=== PATIENT | female | born 1965 | race African-American/Black ===

== ENCOUNTER 2016-09-04 05:53 | Emergency (ER) | payer OTHER ==
[~2016-09-04] VITALS: Ht 167.6 cm; Wt 99.8 kg
[~2016-09-04 05:53] MED LIST: ACYCLOVIR400 MG ORAL; ALBUTEROL SULF8.5 GM INH; AMLODIPINE BESY10 MG; BENTYL10 MG ORAL; GYNE-LOTRIMIN45 GM VG; HYDROCHLOROTHIA25 MG; HYDROCHLOROTHIA25 MG ORAL; IBUPROFEN600 M1; NEURONTIN400 MG ORAL; NORCO 5-325 TA1 EACH ORAL; NORVASC5 MG ORAL; PROTONIX40 MG ORAL; QVAR7.3 G2; TENORMIN25 MG ORAL; VENTOLIN HFA18 GM; ZOFRAN4 M1 ORAL; ZOSTRIX HP56.6 G1 TP
[2016-09-04] MEDS ORDERED: PredniSONE 20mg tab ORAL ONE (06:30)
[2016-09-04] MEDS: Ipratropium 0.02% Inh Soln 2.5ml UD HHN SCH ×3 (06:31→07:00)
[2016-09-04] MEDS: Albuterol ud Inhalation HHN SCH ×3 (06:31→07:00)
[2016-09-04] MEDS ORDERED: GUAIFENESIN-CO118 M1 ORAL (06:58)
[2016-09-04] MEDS ORDERED: ALBUTEROL SULF8.5 GM INH (06:58)
[2016-09-04] MEDS ORDERED: PREDNISONE20 MG ORAL (06:58)
[2016-09-04 07:06] VITALS: BP 100/83
[2016-09-04 07:07] VITALS: BP 117/77
--- NOTE | 2016-09-04 21:54 | Emergency Room Report ---
History of Present Illness General Chief Complaint: Asthma Source: Patient Present Illness HPI 50-year-old female presents ED complaining of cough and wheezing x1 day. States symptoms started yesterday. Cough is dry. Nonproductive. No shortness of breath. Notes history of asthma. Denies any fevers or chills. Denies chest pain. Denies smoking. No other aggravating or relieving factors. Denies any other associated symptoms Allergies: Coded Allergies: NO KNOWN DRUG ALLERGIES (Unverified Allergy, Unknown, 11/07/14) Patient History Past Medical History: HTN, asthma Past Surgical History: none Pertinent Family History: none Social History: Denies: alcohol use, drug use, smoking Last Menstrual Period: not naymore Now: No : 5 Immunizations: UTD Reviewed Nursing Documentation: PMH: Agreed, PSxH: Agreed Nursing Documentation-PMH Hx Hypertension: Yes Hx Asthma: Yes Review of Systems All Other Systems: negative except mentioned in HPI Physical Exam Vital Signs Date Time Temp Pulse Resp B/P Pulse Ox O2 Delivery O2 Flow Rate FiO2 09/04/16 06:00 98.2 80 22 117/77 97 09/04/16 06:10 Room Air 09/04/16 06:31 21 Sp02 EP Interpretation: reviewed, normal General Appearance: no apparent distress, alert, GCS 15, non-toxic Head: normocephalic Eyes: bilateral eye PERRL, bilateral eye normal inspection ENT: normal ENT inspection Neck: normal inspection Respiratory: wheezing Cardiovascular #1: regular rate, rhythm, no edema Gastrointestinal: normal bowel sounds, non tender, soft, non-distended, no guarding, no rebound Rectal: deferred Genitourinary: no CVA tenderness Musculoskeletal: normal inspection Neurologic: alert, oriented x3, responsive, motor strength/tone normal, sensory intact, speech normal Psychiatric: normal inspection Skin: normal inspection Lymphatic: normal inspection Medical Decision Making Diagnostic Impression: Primary Impression: Asthma exacerbation ER Course Hospital Course 50-year-old female presents to ED complaining of cough, wheezing Differential diagnoses include: URI, bronchitis, asthma/COPD, pneumonia Clinical course Patient placed on stretcher. After initial history, physical exam reveals an elderly male in no acute distress. Bilateral TM unremarkable. No pharyngeal erythema. No tonsillar exudates. No lymphadenopathy. Mild wheezing noted on exam, no signs of respiratory distress or retractions. Patient given Prednisone and albuterol/atrovent treatment in ED with symptoms improved. Reassurance given Diagnosis - asthma exacerbation Stable and discharged home with prescriptions for cough syrup, albuterol, prednisone. Instructed to followup with PMD. Return to ED if symptoms recur or worsen Last Vital Signs Date Time Temp Pulse Resp B/P Pulse Ox O2 Delivery O2 Flow Rate FiO2 09/04/16 07:07 98.2 73 18 117/77 100 Room Air 21 Status: improved Disposition: HOME, SELF-CARE Condition: Improved Scripts Albuterol Sulfate* (ALBUTEROL SULFATE MDI*) 8.5 Gm Hfa.aer.ad 2 PUFF INH Q6H, #1 EA 0 Refills Prov: TONIA MARIEE M.D. 09/04/16 Guaifenesin/Codeine Phos* (ROBITUSSIN AC*) 118 Ml Liquid 5 ML ORAL Q6H Y for For Cough, #118 ML 0 Refills Prov: TONIA MARIEE M.D. 09/04/16 Prednisone* (PREDNISONE*) 20 Mg Tablet 20 MG ORAL BID for 3 Days, #6 TAB 0 Refills Prov: TONIA MARIEE M.D. 09/04/16 Referrals: [facility],REFERRING (PCP) Patient Instructions: Asthma, Adult Additional Instructions: - Take prednisone twice daily for 3 days - Cough syrup as needed for cough - Use albuterol for chest tightness, shortness of breath, and wheezing - Followup with your primary care doctor in 2-3 days GABY SANDOVAL M.D. Sep 04, 2016 21:54
== END 2016-09-04 07:10 | disposition home or self-care (01) ==
LOC: EMR 06:26
DX: J45.901 Unspecified asthma with (acute) exacerbation (principal); I10 Essential (primary) hypertension
CPT/HCPCS: 94640; 94664; 99284

== ENCOUNTER 2016-10-14 07:30 | Emergency (ER) | payer OTHER ==
[~2016-10-14] VITALS: Ht 157.5 cm; Wt 104.3 kg
[~2016-10-14 07:30] MED LIST changes: +GUAIFENESIN-CO118 M1 ORAL; +PREDNISONE20 MG ORAL
[2016-10-14 07:45] VITALS: BP 111/74
[2016-10-14 08:45] VITALS: BP 115/76
--- NOTE | 2016-10-14 09:01 | Emergency Room Report ---
History of Present Illness General Chief Complaint: Pain Source: Patient Present Illness HPI Patient presents with complaints of pain to the left upper chest area, also below the breast pain radiating from the left side across the back area Patient was at nighttime she wakes up with the discomfort This is been ongoing for the past several days Denies any change with exertion During work patient also does not feel much discomfort However when laying on that side feels more uncomfortable Patient reports a tearing sensation Denies any abdominal pain Patient reports that she has asthma her breathing treatment also helped a bit , Allergies: Coded Allergies: NO KNOWN DRUG ALLERGIES (Unverified Allergy, Unknown, 11/07/14) Patient History Past Medical History: see triage record Pertinent Family History: none Last Menstrual Period: Menopause Now: No Reviewed Nursing Documentation: PMH: Agreed, PSxH: Agreed Nursing Documentation-PMH Past Medical History: No History, Except For Hx Hypertension: Yes Hx Asthma: Yes Review of Systems All Other Systems: negative except mentioned in HPI Physical Exam Vital Signs Date Time Temp Pulse Resp B/P Pulse Ox O2 Delivery O2 Flow Rate FiO2 10/14/16 07:41 97.5 75 16 111/74 96 Room Air Sp02 EP Interpretation: reviewed, normal General Appearance: well appearing, no apparent distress Head: normocephalic, atraumatic Eyes: bilateral eye EOMI, bilateral eye PERRL ENT: hearing grossly normal, normal pharynx, TMs + canals normal, uvula midline Neck: full range of motion, supple, no meningismus, no bony tend Respiratory: lungs clear, normal breath sounds, no rhonchi, no respiratory distress, no retraction, no accessory muscle use Cardiovascular #1: normal peripheral pulses, regular rate, rhythm, no edema, no gallop, no JVD, no murmur Gastrointestinal: normal bowel sounds, non tender, soft, no mass, no organomegaly, non-distended, no guarding, no hernia, no pulsatile mass, no rebound Genitourinary: no CVA tenderness Musculoskeletal: normal inspection Neurologic: oriented x3, responsive, 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 tested, motor strength/ tone normal, sensory intact Psychiatric: mood/affect normal Skin: normal color, no rash, warm/dry, palpation normal Lymphatic: normal inspection, no adenopathy Medical Decision Making Diagnostic Impression: Primary Impression: chest pain ER Course Patient has had shingles in the past from medical review There is no signs of any dermatomal lesions at this time I did discuss that early presentation history not show any symptoms initially however she is to keep a close eye on this EKG was otherwise appropriate and the patient is stable for close outpatient followup Rhythm Strip Diag. Results EP Interpretation: yes Rate: 78 Rhythm: NSR, no PVC's, no ectopy Last Vital Signs Date Time Temp Pulse Resp B/P Pulse Ox O2 Delivery O2 Flow Rate FiO2 10/14/16 08:45 98.0 76 17 115/76 98 Room Air Status: unchanged Disposition: HOME, SELF-CARE Condition: Stable Referrals: NOT CHOSEN [facility],REFERRING Patient Instructions: Nonspecific Chest Pain, [id number] Additional Instructions: Patient is provided with the discharge instructions notified to follow up with primary doctor in the next 2-3 days otherwise return to the er with any worsening symptoms. Please note that this report is being documented using [employer] technology. This can lead to erroneous entry secondary to incorrect interpretation by the dictating instrument. DWIGHT VUONG D.O. Oct 14, 2016 09:01
--- NOTE | 2016-10-18 00:15 | Cardiology Report ---
APPROVED REPORT EKG Measurement Heart [id number] Normal sinus rhythm Normal ECG
== END 2016-10-14 08:45 | disposition home or self-care (01) ==
LOC: EMR 07:56
DX: R07.9 Chest pain, unspecified (principal); I10 Essential (primary) hypertension; J45.909 Unspecified asthma, uncomplicated; Z78.0 Asymptomatic menopausal state
CPT/HCPCS: 93005; 99283

== ENCOUNTER 2016-11-13 13:25 | Emergency (ER) | payer OTHER ==
[~2016-11-13] VITALS: Ht 170.2 cm; Wt 95.3 kg
[2016-11-13] MEDS ORDERED: Morphine Sulfate 4mg/ml Inj IVP ONE (13:45)
[2016-11-13 13:57] VITALS: BP 103/68
[2016-11-13 14:05] LABS: BASOPHILS % (AUTO) 0.7 % (0.0-2.0); EOSINOPHILS % (AUTO) 4.3 % (0.0-3.0); LYMPHOCYTES % (AUTO) 26.9 % (20.0-45.0); MEAN CORPUSCULAR HEMOGLOBIN 27.6 PG (27.0-31.0); MEAN CORPUSCULAR HGB CONC 32.1 G/DL (32.0-36.0); MEAN CORPUSCULAR VOLUME 86 FL (80-99); MEAN PLATELET VOLUME 8.2 FL (6.5-10.1); MONOCYTES % (AUTO) 5.3 % (1.0-10.0); NEUTROPHILS % (AUTO) 62.7 % (45.0-75.0); PLATELET COUNT 247 K/UL (150-450); RED BLOOD COUNT 4.98 M/UL (4.20-5.40); RED CELL DISTRIBUTION WIDTH 13.1 % (11.6-14.8); WHITE BLOOD COUNT 9.2 K/UL (4.8-10.8)
[2016-11-13 14:18] LABS: APPEARANCE,URINE CLEAR; KETONES,URINE NEGATIVE (NEGATIVE); LEUKOCYTE ESTERASE ,URINE NEGATIVE (NEGATIVE); NITRITE,URINE NEGATIVE (NEGATIVE); PH,URINE 6 (4.5-8.0); PROTEIN,URINE NEGATIVE (NEGATIVE); UROBILINOGEN,URINE NORMAL MG/DL (0.0-1.0)
[2016-11-13 14:23] LABS: ALANINE AMINOTRANSFERASE 10 U/L (3-33); ALBUMIN/GLOBULIN RATIO 1.3 (1.0-2.7); AMYLASE 117 U/L (10-110); ANION GAP 15 (5-15); ASPARTATE AMINO TRANSFERASE 10 U/L (5-40); CALCIUM 9.6 mg/dL (8.6-10.2); CARBON DIOXIDE 25 mEQ/L (20-30); CHLORIDE 98 mEQ/L (98-107); CREATININE 0.9 mg/dL (0.5-0.9); GLOMERULAR FILTRATION RATE > 60 mL/min (>60); HEMOLYSIS 3; LIPASE 152 U/L (< 60); POTASSIUM 3.4 mEQ/L (3.4-4.9); SODIUM 138 mEQ/L (135-145)
[2016-11-13] MEDS ORDERED: NORCO 5-325 TA1 EAC1 ORAL (16:16)
[2016-11-13] MEDS ORDERED: ZOFRAN4 M3 ORAL (16:16)
[2016-11-13 16:28] VITALS: BP 106/69
[2016-11-13 16:29] VITALS: BP 106/69
--- NOTE | 2016-11-13 21:11 | Emergency Room Report ---
History of Present Illness General Chief Complaint: Abdominal Pain Source: Medical Record Present Illness HPI The patient is a 50-year-old female with a history of pancreatitis presenting for mid upper abdominal pain which began 2 days prior. Pain is described as a 10 out of 10 dull ache and radiates to the back. Patient also admits to nausea and diarrhea which began prior to the pain. She denies vomiting. No known provoking or relieving factors. She states this does feel similar to previous pancreatitis. The patient states pancreatitis was onset by inhaling chemicals years prior. She denies any other symptoms including fever, chills, dysuria, hematuria, shortness of breath, chest pain, numbness or tingling Allergies: Coded Allergies: NO KNOWN DRUG ALLERGIES (Unverified Allergy, Unknown, 11/07/14) Nursing Documentation-[facility] Past Medical History: No History, Except For Hx Hypertension: Yes Hx Asthma: Yes Physical Exam Vital Signs Date Time Temp Pulse Resp B/P Pulse Ox O2 Delivery O2 Flow Rate FiO2 11/13/16 13:23 98.1 76 18 103/68 97 Room Air Medical Decision Making PA Attestation Dr. Little is my supervising physician. Patient management was discussed with my supervising physician Diagnostic Impression: Primary Impression: Pancreatitis, gallstone ER Course Differential diagnoses considered include but not limited to gastritis, pancreatitis, appendicitis, AAA, ACS, , UTI Labs Test 11/13/16 13:40 11/13/16 13:45 White Blood Count 9.2 K/UL (4.8-10.8) Red Blood Count 4.98 M/UL (4.20-5.40) Hemoglobin 13.8 G/DL (12.0-16.0) Hematocrit 42.9 % (37.0-47.0) Mean Corpuscular Volume 86 FL (80-99) Mean Corpuscular Hemoglobin 27.6 PG (27.0-31.0) Mean Corpuscular Hemoglobin Concent 32.1 G/DL (32.0-36.0) Red Cell Distribution Width 13.1 % (11.6-14.8) Platelet Count 247 K/UL (150-450) Mean Platelet Volume 8.2 FL (6.5-10.1) Neutrophils (%) (Auto) 62.7 % (45.0-75.0) Lymphocytes (%) (Auto) 26.9 % (20.0-45.0) Monocytes (%) (Auto) 5.3 % (1.0-10.0) Eosinophils (%) (Auto) 4.3 % (0.0-3.0) Basophils (%) (Auto) 0.7 % (0.0-2.0) Sodium Level 138 mEQ/L (135-145) Potassium Level 3.4 mEQ/L (3.4-4.9) Chloride Level 98 mEQ/L (98-107) Carbon Dioxide Level 25 mEQ/L (20-30) Anion Gap 15 (5-15) Blood Urea Nitrogen 15 mg/dL (7-23) Creatinine 0.9 mg/dL (0.5-0.9) Estimat Glomerular Filtration Rate > 60 mL/min (>60) Glucose Level 63 mg/dL (74-106) Calcium Level 9.6 mg/dL (8.6-10.2) Total Bilirubin 0.3 mg/dL (0.0-1.2) Aspartate Amino Transf (AST/SGOT) 10 U/L (5-40) Alanine Aminotransferase (ALT/SGPT) 10 U/L (3-33) Alkaline Phosphatase 72 U/L (35-104) Total Protein 7.0 g/dL (6.6-8.7) Albumin 4.0 g/dL (3.5-5.2) Globulin 3.0 g/dL Albumin/Globulin Ratio 1.3 (1.0-2.7) Amylase Level 117 U/L (10-110) Lipase 152 U/L (< 60) Urine Color Yellow Urine Appearance Clear Urine pH 6 (4.5-8.0) Urine Specific [place] 1.020 (1.005-1.035) Urine Protein Negative (NEGATIVE) Urine Glucose (UA) Negative (NEGATIVE) Urine Ketones Negative (NEGATIVE) Urine Occult Blood Negative (NEGATIVE) Urine Nitrite Negative (NEGATIVE) Urine Bilirubin Negative (NEGATIVE) Urine Urobilinogen Normal MG/DL (0.0-1.0) Urine Leukocyte Esterase Negative (NEGATIVE) Last Vital Signs Date Time Temp Pulse Resp B/P Pulse Ox O2 Delivery O2 Flow Rate FiO2 11/13/16 16:29 98.1 72 18 106/69 98 Room Air Status: improved Disposition: HOME, SELF-CARE Condition: Improved Scripts Hydrocodone Bit/Acetaminophen 5-325* (NORCO 5-325 TABLET*) 1 Each Tablet 1 TAB ORAL Q6HR Y for For Pain, #8 TAB Prov: ERLIN CRAIG 11/13/16 Ondansetron* (ZOFRAN*) 4 Mg Tablet 4 MG ORAL Q6H Y for Nausea & Vomiting, #15 TAB Prov: ERLIN CRAIG. 11/13/16 Patient Instructions: Cholelithiasis, Diarrhea, Adult, Acute Pancreatitis Additional Instructions: I discussed my findings with the patient. All questions and concerns have been answered. Treatment and medication compliance have been addressed. I advised the patient that they need to follow up with PMD in 3-5 days. Return to ED as soon as possible if symptoms worsen, new symptoms arise, or if needed for any reason. Patient verbalized understanding of discharge instructions. ERLIN CRAIG Nov 13, 2016 21:11
--- NOTE | 2016-11-14 08:40 | Diagnostic Imaging Report ---
Clinical Indication: Abdominal pain Technique: No oral contrast utilized, per emergency room physician request IV administration nonionic contrast. Venous phase spiral acquisition obtained through the abdomen and pelvis. Multiplanar reconstructions were generated. Total dose length product 1014 mGycm. CTDIvol(s) 18 mGy. Dose reduction achieved using automated exposure control Comparison: None Findings: The appendix is normal there is colonic diverticulosis. There is some wall thickening of the proximal sigmoid colon, but no significant fat stranding. No free or loculated intraperitoneal air or fluid. No small bowel distention. The distal esophagus, stomach, duodenum are unremarkable. There is slight prominence and heterogeneous attenuation of the pancreatic head and slight stranding of the peripancreatic fat adjacent to the pancreatic head. No associated extra luminal fluid collections. The remainder of the pancreas is unremarkable The gallbladder contains gallstones. Gallbladder wall is not thickened and there is no biliary ductal dilatation. The liver is unremarkable. The spleen, adrenals, kidneys are unremarkable. There is a possibly septated cystic mass in the right adnexal region which measures 6.6 cm in diameter. There is a 2.4 cm cyst in the left ovary, presumably a dominant follicle. Uterus is unremarkable. No pelvic adenopathy. The bladder is unremarkable. The included lung bases are clear. The bones are unremarkable except for mild degenerative spondylosis changes at the lumbosacral junction. There are questionable subtle bilateral L5 pars defects Impression: Mild peripancreatic fat stranding and subtle slight edema and mixed attenuation of the pancreatic head, could indicate early acute pancreatitis. Correlate with laboratory results. Cholelithiasis. No findings to suggest acute cholecystitis Diverticulosis. Suggestion of slight wall thickening of the proximal sigmoid colon, probably due to circular muscle hypertrophy; very early acute diverticulitis not completely excludable, correlation with clinical findings is recommended Right adnexal 6.6 cm cystic structure, possibly septated or tubular, could indicate functional cyst, cystic mass or hydrosalpinx. Correlate with ultrasound findings Questionable bilateral L5 spondylolysis. Associated L5-S1 disc degeneration This agrees with the preliminary interpretation provided overnight by Dr. Kaur The CT scanner at [facility] is accredited by the [employer] and the scans are performed using protocols designed to limit radiation exposure to as low as reasonably achievable to attain images of sufficient resolution adequate for diagnostic evaluation.
== END 2016-11-13 16:31 | disposition home or self-care (01) ==
LOC: EDBD 13:25 → EMR 13:45
DX: K85.10 Biliary acute pancreatitis without necrosis or infection (principal); I10 Essential (primary) hypertension; J45.909 Unspecified asthma, uncomplicated; K57.30 Diverticulosis of large intestine without perforation or abscess without bleeding
CPT/HCPCS: 36415; 74177; 80053; 81003; 82150; 83690; 85025; 96374; 96375; 99284; J2270; J2405; Q9967

== ENCOUNTER 2017-07-28 20:42 | Emergency (ER) | payer MEDICAID, OTHER ==
[~2017-07-28] VITALS: Ht 162.6 cm; Wt 95.3 kg
[~2017-07-28 20:42] MED LIST changes: +NORCO 5-325 TA1 EAC1 ORAL; +ZOFRAN4 M3 ORAL
[2017-07-28] MEDS ORDERED: HYDROmorphone 1mg/ml Carpuject IVP ONE (21:15)
--- NOTE | 2017-07-28 21:44 | Emergency Room Report ---
History of Present Illness General Chief Complaint: Abdominal Pain Source: Patient Present Illness HPI Is a 51-year-old female with history of gallstone and pancreatitis in the past. She saw surgeon and no surgery was recommended. She was doing well for the last 3 years. Now presents with chief complaint abdominal pain in the upper quadrant area. Onset for last 3 days. Pain is now severe 10 out of 10. Worse with eating. No radiation. Nausea but no vomiting. No diarrhea. No fever or chills. No alcoholic or drug use Allergies: Coded Allergies: NO KNOWN DRUG ALLERGIES (Unverified Allergy, Unknown, 11/07/14) Patient History Past Medical History: see triage record, old chart reviewed Past Surgical History: none Pertinent Family History: none Social History: Denies: smoking Now: No Immunizations: other Reviewed Nursing Documentation: PMH: Agreed, PSxH: Agreed Nursing Documentation-PMH Past Medical History: No History, Except For Hx Hypertension: Yes Hx Asthma: Yes Hx Gastrointestinal Problems: No - Pancreatitis Review of Systems Eye: Denies: eye pain, blurred vision ENT: Denies: ear pain, nose congestion, throat swelling Respiratory: Denies: cough, shortness of breath Cardiovascular: Denies: chest pain, palpitations Gastrointestinal: Reports: abdominal pain, nausea, Denies: diarrhea, vomiting Musculoskeletal: Denies: back pain, joint pain Skin: Denies: rash Neurological: Denies: headache, numbness Endocrine: Denies: increased thirst, increased urine Hematologic/Lymphatic: Denies: easy bruising All Other Systems: negative except mentioned in HPI Physical Exam Vital Signs Date Time Temp Pulse Resp B/P (MAP) Pulse Ox O2 Delivery O2 Flow Rate FiO2 07/28/17 20:52 97.7 87 16 154/92 99 vitals with high blood pressure Sp02 EP Interpretation: reviewed, normal General Appearance: well appearing, no apparent distress, alert, obese Head: normocephalic, atraumatic Eyes: bilateral eye PERRL, bilateral eye EOMI ENT: hearing grossly normal, normal pharynx Neck: full range of motion, supple, no meningismus Respiratory: chest non-tender, lungs clear, normal breath sounds Cardiovascular #1: regular rate, rhythm, no murmur Gastrointestinal: normal bowel sounds, no mass, no organomegaly, no bruit, non- distended, tenderness - Mostly left upper quadrant Musculoskeletal: back normal, gait/station normal, normal range of motion Psychiatric: mood/affect normal Skin: warm/dry Medical Decision Making Diagnostic Impression: Primary Impression: Pancreatitis, acute Qualified Codes: K85.90 - Acute pancreatitis without necrosis or infection, unspecified ER Course Patient presents with acute pancreatitis. She does have history of gallstone but I do not see any evidence of obstruction based on laboratory data and physical exam. Her pain is localized to the left upper quadrant not right upper quadrant. Bilirubin is normal. LFTs are normal. She felt better now. I recommended admission to the hospital for IV fluid and pain control. Patient said that she cannot miss work and wants to go home and try as an outpatient first. Explained to the patient that this unlikely to be successful but since patient is competent to make that decision, I will discharge her home with pain medication. Told patient to go on light liquid diet. If symptom worsen or not better, she needs to come in for admission. Patient expressed understanding. Lab Results Impression labs with elevated lipase Last Vital Signs Date Time Temp Pulse Resp B/P (MAP) Pulse Ox O2 Delivery O2 Flow Rate FiO2 07/28/17 20:52 97.7 87 16 154/92 99 Status: improved Disposition: HOME, SELF-CARE Condition: Stable Scripts Hydrocodone/Acetaminophen 5-325* (HYDROCODONE/ACETAMINOPHEN 5-325*) 1 Each Tablet 1 TAB ORAL Q6H Y for For Pain, #30 TAB 0 Refills Prov: GARY YUEN M.D. 07/28/17 Additional Instructions: Followup with your DrShaq in one to 2 days. You have pancreatitis and should be admitted to the hospital. If you change your mind, return. Clear liquid diet until better. No alcohol. Return if symptom worsen. GARY YUEN M.D. Jul 28, 2017 21:44
[2017-07-28 21:49] LABS: BASOPHILS % (AUTO) 0.8 % (0.0-2.0); EOSINOPHILS % (AUTO) 2.4 % (0.0-3.0); HEMATOCRIT 41.7 % (37.0-47.0); HEMOGLOBIN 12.9 G/DL (12.0-16.0); MEAN CORPUSCULAR VOLUME 87 FL (80-99); NEUTROPHILS % (AUTO) 65.9 % (45.0-75.0); PLATELET COUNT 269 K/UL (150-450); RED BLOOD COUNT 4.78 M/UL (4.20-5.40); RED CELL DISTRIBUTION WIDTH 11.7 % (11.6-14.8)
[2017-07-28 21:50] LABS: APPEARANCE,URINE SLIGHTLY CLOUDY; BILIRUBIN, URINE NEGATIVE (NEGATIVE); COLOR,URINE PALE YELLOW; GLUCOSE, URINE (UA) NEGATIVE (NEGATIVE); KETONES,URINE NEGATIVE (NEGATIVE); LEUKOCYTE ESTERASE ,URINE NEGATIVE (NEGATIVE); NITRITE,URINE NEGATIVE (NEGATIVE); PH,URINE 6 (4.5-8.0); PROTEIN,URINE NEGATIVE (NEGATIVE); UROBILINOGEN,URINE NORMAL MG/DL (0.0-1.0)
[2017-07-28 22:05] LABS: ANION GAP 9 mmol/L (5-15); BLOOD UREA NITROGEN 22 mg/dL (7-18); CALCIUM 9.8 MG/DL (8.5-10.1); CARBON DIOXIDE 29 MMOL/L (21-32); CHLORIDE 103 MMOL/L (98-107); CREATININE 1.3 MG/DL (0.55-1.30); POTASSIUM 3.4 MMOL/L (3.5-5.1); SODIUM 141 MMOL/L (136-145)
[2017-07-28 22:10] LABS: ALANINE AMINOTRANSFERASE 14 U/L (12-78); ALBUMIN 3.7 G/DL (3.4-5.0); ALBUMIN/GLOBULIN RATIO 0.9 (1.0-2.7); ALKALINE PHOSPHATASE 84 U/L (46-116); ASPARTATE AMINO TRANSFERASE 14 U/L (15-37); BILIRUBIN,TOTAL 0.3 MG/DL (0.2-1.0)
[2017-07-28] MEDS ORDERED: HYDROCODON-ACE1 EA15 ORAL (22:48)
[2017-07-29 00:25] VITALS: BP 148/82
[2017-07-29 00:32] VITALS: BP 148/82
[2017-07-29] MEDS ORDERED: ONDANSETRON ODT4 MG ORAL (11:32)
== END 2017-07-29 00:32 | disposition home or self-care (01) ==
LOC: EMR 23:56
DX: K85.90 Acute pancreatitis without necrosis or infection, unspecified (principal); I10 Essential (primary) hypertension; J45.909 Unspecified asthma, uncomplicated
CPT/HCPCS: 36415; 80053; 81003; 83690; 85025; 96374; 96375; 99284; J1170; J2405

== ENCOUNTER 2017-07-29 09:31 | Emergency (ER) | payer MEDICAID ==
[~2017-07-29] VITALS: Ht 167.6 cm; Wt 104.3 kg
[~2017-07-29 09:31] MED LIST changes: +HYDROCODON-ACE1 EA15 ORAL
[2017-07-29 09:40] VITALS: BP 152/84
[2017-07-29] MEDS ORDERED: Morphine Sulfate 4mg/ml Inj IVP ONE ×3 (10:30→16:30)
[2017-07-29 10:35] LABS: BASOPHILS % (AUTO) 0.4 % (0.0-2.0); EOSINOPHILS % (AUTO) 0.7 % (0.0-3.0); HEMATOCRIT 39.6 % (37.0-47.0); HEMOGLOBIN 13.2 G/DL (12.0-16.0); LYMPHOCYTES % (AUTO) 18.3 % (20.0-45.0); MEAN CORPUSCULAR VOLUME 85 FL (80-99); MONOCYTES % (AUTO) 4.2 % (1.0-10.0); NEUTROPHILS % (AUTO) 76.3 % (45.0-75.0); PLATELET COUNT 272 K/UL (150-450); RED BLOOD COUNT 4.64 M/UL (4.20-5.40); RED CELL DISTRIBUTION WIDTH 11.7 % (11.6-14.8); WHITE BLOOD COUNT 13.2 K/UL (4.8-10.8)
[2017-07-29 10:41] LABS: ANION GAP 11 mmol/L (5-15); BLOOD UREA NITROGEN 13 mg/dL (7-18); CALCIUM 9.3 MG/DL (8.5-10.1); CARBON DIOXIDE 27 MMOL/L (21-32); CHLORIDE 101 MMOL/L (98-107); POTASSIUM 2.9 MMOL/L (3.5-5.1); SODIUM 139 MMOL/L (136-145)
[2017-07-29 10:50] LABS: ALANINE AMINOTRANSFERASE 18 U/L (12-78); ALBUMIN 3.5 G/DL (3.4-5.0); ALBUMIN/GLOBULIN RATIO 0.9 (1.0-2.7); ALKALINE PHOSPHATASE 82 U/L (46-116); ASPARTATE AMINO TRANSFERASE 11 U/L (15-37); BILIRUBIN,TOTAL 0.4 MG/DL (0.2-1.0)
[2017-07-29] MEDS ORDERED: ONDANSETRON ODT4 MG ORAL (11:32)
[2017-07-29 11:35] VITALS: BP 149/78
--- NOTE | 2017-07-29 13:14 | Emergency Room Report ---
History of Present Illness General Chief Complaint: Abdominal Pain Source: Patient Present Illness HPI 51-year-old female presents with worsening abdominal pain. Patient was here yesterday, found to have elevated lipase consistent with known pancreatitis. states recurrent pancreatitis, thought to to gallstones. Denies history of alcohol abuse Lipase at that time was around 9000, LFTs were normal, no imaging was done at the time. Patient changed her mind multiple times about admission, ultimately signed out AMA when told she would be transferred to [place]. Was given prescription for [place] which she filled and took this morning, and again in the ER Still complaining of pain Denies nausea, vomiting, fever chills or diarrhea Allergies: Coded Allergies: NO KNOWN DRUG ALLERGIES (Unverified Allergy, Unknown, 11/07/14) Patient History Past Medical History: none Past Surgical History: none Pertinent Family History: none Social History: Denies: smoking, alcohol use, drug use Now: No Immunizations: UTD Reviewed Nursing Documentation: PMH: Agreed, PSxH: Agreed Nursing Documentation-PMH Past Medical History: No History, Except For Hx Hypertension: Yes Hx Asthma: Yes Hx Gastrointestinal Problems: No - Pancreatitis Review of Systems All Other Systems: negative except mentioned in HPI Physical Exam Vital Signs Date Time Temp Pulse Resp B/P (MAP) Pulse Ox O2 Delivery O2 Flow Rate FiO2 07/29/17 09:24 98.1 72 18 152/84 99 Room Air Sp02 EP Interpretation: reviewed, normal General Appearance: normal inspection, well appearing, no apparent distress, alert, GCS 15, non-toxic, obese Head: normocephalic, atraumatic Eyes: bilateral eye PERRL, bilateral eye EOMI ENT: normal ENT inspection, hearing grossly normal, normal pharynx, no angioedema, normal voice, TMs + canals normal, uvula midline, moist mucus membranes Neck: normal inspection, full range of motion, supple, thyroid normal, no meningismus, no bony tend Respiratory: normal inspection, lungs clear, normal breath sounds, no rhonchi, no respiratory distress, no retraction, no accessory muscle use, no wheezing, speaking full sentences Cardiovascular #1: regular rate, rhythm, no edema, no JVD, normal capillary refill Gastrointestinal: normal inspection, normal bowel sounds, soft, no mass, no peritonitis, non-distended, no guarding, no hernia, no pulsatile mass, other - Minimal epigastric tenderness Genitourinary: no CVA tenderness Musculoskeletal: normal inspection, back normal, normal range of motion, no calf tenderness, pelvis stable, Vee's Sign negative Neurologic: normal inspection, alert, oriented x3, 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, 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, motor strength/tone normal, cerebellar normal, normal gait, speech normal Psychiatric: normal inspection, judgement/insight normal, mood/affect normal, no suicidal/homicidal ideation, no delusions Skin: normal inspection, normal color, no rash Lymphatic: normal inspection, no adenopathy Medical Decision Making Diagnostic Impression: Primary Impression: Pancreatitis, acute Qualified Codes: K85.90 - Acute pancreatitis without necrosis or infection, unspecified ER Course lipase downturning to 4000 Again no LFT abnormality Patient requiring multiple doses of pain medication in the ER Ultrasound pending at time of endorsement n.p.o. IV fluid maintenance given med/surg admission accepted for transfer to [facility], 144pm Dr Lee states he will do sono there Last Vital Signs Date Time Temp Pulse Resp B/P (MAP) Pulse Ox O2 Delivery O2 Flow Rate FiO2 07/29/17 11:40 98.1 70 17 149/78 99 Room Air Status: improved Disposition: HOME, SELF-CARE Condition: Serious Scripts Ondansetron Odt* (ZOFRAN ODT*) 4 Mg Tab.rapdis 4 MG ORAL EVERY 8 HOURS for 7 Days, #20 TAB 0 Refills Prov: TONIA MARIEE M.D. 07/29/17 Referrals: [facility],REFERRING (PCP) Patient Instructions: Acute Pancreatitis, [id number] Additional Instructions: - Take zofran with norco as needed for pain/nausea - If unable to take the norco by mouth because of nausea/vomiting, please return to ER - Follow up with your doctor in 2-3 days TONIA MARIEE M.D. Jul 29, 2017 13:14
[2017-07-29 15:55] VITALS: BP 132/61
[2017-07-29 17:04] VITALS: BP 132/61
== END 2017-07-29 17:07 | disposition home or self-care (01) ==
LOC: EDBD 09:31 → EMR 10:08
DX: K85.90 Acute pancreatitis without necrosis or infection, unspecified (principal); I10 Essential (primary) hypertension; J45.909 Unspecified asthma, uncomplicated
CPT/HCPCS: 36415; 80053; 83690; 85025; 96374; 96375; 99284; J2270; J2405; J8499

== ENCOUNTER 2017-12-23 17:12 | Emergency (ER) | payer MEDICAID, OTHER ==
[~2017-12-23] VITALS: Ht 167.6 cm; Wt 101.6 kg
[~2017-12-23 17:12] MED LIST changes: +ONDANSETRON ODT4 MG ORAL
[2017-12-23 17:43] VITALS: BP 129/90
[2017-12-23] MEDS ORDERED: NORCO 10-325 T1 EACH ORAL (17:48)
--- NOTE | 2017-12-23 18:00 | Emergency Room Report ---
History of Present Illness General Chief Complaint: Pain Source: Patient Present Illness HPI 52-year-old female presents to the emergency department complaining of 10 out of 10 in severity progressive left posterior shoulder and left-sided neck and upper back pain 3 weeks. Patient reports burning sensation and tightness along the left side of her upper back and left side of the neck. Patient states that she is left-handed she states that symptoms began after she was carrying several cherries for food up and down couple flights of stairs for . Patient denies appreciable trauma or fall. Patient denies midline neck or back pain. Denies numbness tingling or loss of sensation or gross motor movements of the extremities, incontinence of bowel or bladder. Denies CP, jaw pain, Palpitations, LOC, AMS, dizziness, Changes in Vision, weakness or a sudden severe headache. Allergies: Coded Allergies: NO KNOWN DRUG ALLERGIES (Unverified Allergy, Unknown, 11/07/14) Patient History Past Medical History: see triage record Past Surgical History: none Pertinent Family History: none Last Menstrual Period: Post Now: No Reviewed Nursing Documentation: PMH: Agreed; PSxH: Agreed Nursing Documentation-PMH Hx Hypertension: Yes Hx Asthma: Yes Hx Gastrointestinal Problems: No - Pancreatitis Review of Systems All Other Systems: negative except mentioned in HPI Physical Exam Vital Signs Date Time Temp Pulse Resp B/P (MAP) Pulse Ox O2 Delivery O2 Flow Rate FiO2 12/23/17 17:43 98.1 71 20 129/90 95 Room Air 98.1 Sp02 EP Interpretation: reviewed, normal General Appearance: no apparent distress, alert, GCS 15, non-toxic Head: normocephalic, atraumatic Eyes: bilateral eye normal inspection, bilateral eye PERRL ENT: hearing grossly normal, normal voice Neck: full range of motion Respiratory: lungs clear, normal breath sounds, speaking full sentences Cardiovascular #1: regular rate, rhythm, normal capillary refill Musculoskeletal: back normal, gait/station normal, normal range of motion, tender - Left Trapezius TTP, swelling noted compared to right side, tense to palpation, FROM, no midline spinous tenderness, FROM of shoulder no clicking or bony ttp. Neurologic: alert, oriented x3, responsive, motor strength/tone normal, sensory intact, normal gait, speech normal, grossly normal Psychiatric: judgement/insight normal Skin: normal color, no rash, warm/dry, well hydrated Medical Decision Making PA Attestation Dr. Martin is my supervising Physician whom patient management has been discussed with. Diagnostic Impression: Primary Impression: Muscle strain Additional Impression: Muscle spasm of left shoulder area ER Course 52-year-old female presents to the emergency department complaining of 10 out of 10 in severity progressive left posterior shoulder and left-sided neck and upper back pain 3 weeks. Patient reports burning sensation and tightness along the left side of her upper back and left side of the neck. Patient states that she is left-handed she states that symptoms began after she was carrying several cherries for food up and down couple flights of stairs for . Patient denies appreciable trauma or fall. Patient denies midline neck or back pain. Denies numbness tingling or loss of sensation or gross motor movements of the extremities, incontinence of bowel or bladder. Denies CP, jaw pain, Palpitations, LOC, AMS, dizziness, Changes in Vision, weakness or a sudden severe headache. Ddx considered but are not limited to Fracture, dislocation, contusion, Sprain/ Strain/Spasm Vital signs: are WNL, pt. is afebrile H&PE are most consistent with muscular strain with spasm. of the left upper back/ trapeziua ORDERS: - X-ray- Not required at this time no bony tenderness to palpation. ED INTERVENTIONS: - Lidoderm patch tp. d/w pt. conservative treatment, and to follow up with a primary care provider. pt given a list of primary care clinics for follow up. d/w pt. to return to the ED with worsening or new symptoms. DISCHARGE: At this time pt. is stable for d/c to home. Will provide printed patient care instructions, and any necessary prescriptions. Care plan and follow up instructions have been discussed with the patient prior to discharge. Last Vital Signs Date Time Temp Pulse Resp B/P (MAP) Pulse Ox O2 Delivery O2 Flow Rate FiO2 12/23/17 17:43 98.1 71 20 129/90 95 Room Air 98.1 Disposition: HOME, SELF-CARE Condition: Stable Scripts Ibuprofen* (MOTRIN*) 600 Mg Tablet 600 MG ORAL THREE TIMES A DAY, #20 TAB 0 Refills Prov: Liz Mejia 12/23/17 Lidocaine (Lidoderm) 1 Each Adh..patch 1 PATCH TOPIC DAILY, #30 PATCH 0 Refills Patch(es) may remain in place for up to 12 hours in any 24-hour period. Prov: Liz Mejia 12/23/17 Methocarbamol* (ROBAXIN*) 500 Mg Tablet 1000 MG PO TID for 7 Days, #42 TAB 0 Refills Prov: Liz Mejia 12/23/17 Carisoprodol* (SOMA*) 350 Mg Tablet 350 MG PO QHS for 1 Day, #1 TAB Take 1 "Soma/carisoprodol" tonight at bedtime.Then start taking "Robaxin/methocarbamol" for maintenance starting tomorrow, do not take both medications at the same time. Prov: Liz Mejia 12/23/17 Patient Instructions: Muscle Cramps and Spasms, [id number], Muscle Strain, [id number] Additional Instructions: Take medications as directed. Follow up with a Primary Care Provider in 3-5 days, even if your symptoms have resolved. --Please review list of primary care clinics, if you do not already have a primary care provider Return sooner to ED if new symptoms occur, or current symptoms become worse. Do not drink alcohol, drive, or operate heavy machinery while taking [ ] as this may cause drowsiness. - Please note that this Emergency Department Report was dictated using [employer] food technologist technology software, occasionally this can lead to erroneous entry secondary to interpretation by the dictation equipment. Liz Mejia Dec 23, 2017 18:00
[2017-12-23] MEDS ORDERED: ROBAXIN500 MG PO (18:33)
[2017-12-23] MEDS ORDERED: LIDODERM700 M1 TOPIC (18:33)
[2017-12-23] MEDS ORDERED: SOMA350 MG PO (18:33)
[2017-12-23] MEDS ORDERED: IBUPROFEN600 MG ORAL (18:33)
[2017-12-23 19:15] VITALS: BP 129/90
== END 2017-12-23 19:25 | disposition home or self-care (01) ==
LOC: EMR 18:20
DX: M62.838 Other muscle spasm (principal); T14.8XXA Other injury of unspecified body region, initial encounter; I10 Essential (primary) hypertension; J45.909 Unspecified asthma, uncomplicated; X58.XXXA Exposure to other specified factors, initial encounter; Y92.9 Unspecified place or not applicable
CPT/HCPCS: 99284

== ENCOUNTER → 2017-12-30 | Emergency (ER) | payer OTHER ==
[~2017-12-30] VITALS: Ht 167.6 cm; Wt 95.3 kg
[~2017-12-30] MED LIST changes: +IBUPROFEN600 MG ORAL; +IBUPROFEN800 MG ORAL; +LIDODERM700 M1 TOPIC; +NORCO 10-325 T1 EACH ORAL; +ROBAXIN500 MG PO; +SOMA350 MG PO
[2017-12-30 19:35] VITALS: BP 128/72
--- NOTE | 2017-12-31 00:12 | Emergency Room Report ---
History of Present Illness General Chief Complaint: Neck Pain Source: Patient Present Illness Allergies: Coded Allergies: NO KNOWN DRUG ALLERGIES (Unverified Allergy, Unknown, 11/07/14) Patient History Now: No Nursing Documentation-[facility] Past Medical History: No History, Except For Hx Hypertension: Yes Hx Asthma: Yes Hx Gastrointestinal Problems: No - Pancreatitis Physical Exam Vital Signs Date Time Temp Pulse Resp B/P (MAP) Pulse Ox O2 Delivery O2 Flow Rate FiO2 12/30/17 19:35 97.7 91 15 128/72 99 Room Air 97.7 Medical Decision Making Diagnostic Impression: Primary Impression: Patient left without being seen ER Course Patient left without being seen Last Vital Signs Date Time Temp Pulse Resp B/P (MAP) Pulse Ox O2 Delivery O2 Flow Rate FiO2 12/30/17 19:35 97.7 91 15 128/72 99 Room Air 97.7 Status: unchanged Disposition: LEFT W/OUT BEING SEEN Condition: Unknown Referrals: Juan José Reyes MD (PCP) Poncho Cruz MD Dec 31, 2017 00:12
== END | disposition left against medical advice (07) ==
LOC: EMR 22:14
DX: M54.2 Cervicalgia (principal); Z53.21 Procedure and treatment not carried out due to patient leaving prior to being seen by health care provider
CPT/HCPCS: 99284; Z7502

== ENCOUNTER 2018-01-01 08:17 | Emergency (ER) | payer OTHER ==
[~2018-01-01] VITALS: Ht 167.6 cm; Wt 99.8 kg
[~2018-01-01 08:17] MED LIST changes: -IBUPROFEN800 MG ORAL
[2018-01-01] MEDS ORDERED: Betadine 4oz Bottle TOPIC ONE (09:09)
--- NOTE | 2018-01-01 09:25 | Diagnostic Imaging Report ---
Indication: Trauma Technique: Continuous helical CT scanning of the head was performed utilizing automated exposure control without intravenous contrast material. Axial and coronal reconstructions were obtained. Comparison: None CT dose: Total DLP 1446.13 mGycm; CTDI vol 70.38 mGy Findings: There is no acute intracranial hemorrhage, midline shift, mass effect or cortical edema. The ventricles, cisterns and sulci are normal for age. There is left supraorbital/temporal soft tissue swelling with skin irregularity concerning for laceration. Correlate with physical exam. No associated calvarial fracture. Mastoid air cells and paranasal sinuses are clear. IMPRESSION: No evidence of acute intracranial hemorrhage, mass effect or cortical edema. Left supraorbital/temporal soft tissue swelling with skin irregularity concerning for laceration. Correlate with physical exam. No associated calvarial fracture. The CT scanner at [facility] [place] is accredited by the [employer] and the scans are performed using protocols designed to limit radiation exposure to as low as reasonably achievable to attain images of sufficient resolution adequate for diagnostic evaluation.
[2018-01-01] MEDS ORDERED: Lidocaine 1% MPF 10mg/ml 5ml INJ ONE (09:45)
[2018-01-01] MEDS ORDERED: Tetanus/Diptheria/Pertussis Vaccine 0.5ml Syr IM ONE (09:45)
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
[2018-01-01] MEDS ORDERED: IBUPROFEN800 MG ORAL (11:31)
[2018-01-01 11:40] VITALS: BP 94/70
[2018-01-01 11:53] VITALS: BP 94/70
== END 2018-01-01 11:50 | disposition home or self-care (01) ==
LOC: EMR 08:51
DX: S01.81XA Laceration without foreign body of other part of head, initial encounter (principal); S09.8XXA Other specified injuries of head, initial encounter; W20.8XXA Other cause of strike by thrown, projected or falling object, initial encounter; Y92.008 Other place in unspecified non-institutional (private) residence as the place of occurrence of the external cause; Z23 Encounter for immunization; J45.909 Unspecified asthma, uncomplicated; I10 Essential (primary) hypertension; F32.9 Major depressive disorder, single episode, unspecified
CPT/HCPCS: 12011; 70450; 86703; 86706; 86803; 90471; 90715; 99284; Z7502; A4246

== ENCOUNTER 2018-01-09 07:44 | Emergency (ER) | payer OTHER ==
[~2018-01-09] VITALS: Ht 165.1 cm; Wt 108.9 kg
[~2018-01-09 07:44] MED LIST changes: +IBUPROFEN800 MG ORAL
[2018-01-09 08:10] VITALS: BP 135/85
[2018-01-09 08:49] VITALS: BP 135/85
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
[2018-01-09] MEDS ORDERED: BACITRACIN15 GM TOPIC (08:55)
== END 2018-01-09 09:00 | disposition home or self-care (01) ==
LOC: EMR 08:55
DX: Z48.02 Encounter for removal of sutures (principal); I10 Essential (primary) hypertension; J45.909 Unspecified asthma, uncomplicated
CPT/HCPCS: 99282

== ENCOUNTER 2018-01-17 01:10 | Emergency (ER) | payer OTHER ==
[~2018-01-17] VITALS: Ht 167.6 cm; Wt 99.8 kg
[2018-01-17 01:10] VITALS: BP 158/91
[~2018-01-17 01:10] MED LIST changes: +BACITRACIN15 GM TOPIC
[2018-01-17] MEDS ORDERED: Meclizine 25mg tab ORAL ONE (01:30)
[2018-01-17] MEDS ORDERED: Ketorolac 60mg Inj IM ONE (02:00)
[2018-01-17 02:14] LABS: APPEARANCE,URINE CLEAR; BILIRUBIN, URINE NEGATIVE (NEGATIVE); COLOR,URINE PALE YELLOW; GLUCOSE, URINE (UA) NEGATIVE (NEGATIVE); KETONES,URINE NEGATIVE (NEGATIVE); LEUKOCYTE ESTERASE ,URINE NEGATIVE (NEGATIVE); NITRITE,URINE NEGATIVE (NEGATIVE); PH,URINE 6 (4.5-8.0); PROTEIN,URINE NEGATIVE (NEGATIVE); UROBILINOGEN,URINE NORMAL MG/DL (0.0-1.0)
[2018-01-17] MEDS ORDERED: MECLIZINE HCL25 MG ORAL (02:34)
[2018-01-17 02:40] VITALS: BP 115/79
[2018-01-17 02:42] VITALS: BP 115/79
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
== END 2018-01-17 02:42 | disposition home or self-care (01) ==
LOC: EDBD 01:10 → EMR 01:24
DX: R51 Headache (principal); R42 Dizziness and giddiness; I10 Essential (primary) hypertension; J45.909 Unspecified asthma, uncomplicated; F32.9 Major depressive disorder, single episode, unspecified
CPT/HCPCS: 81003; 96372; 99283

== ENCOUNTER 2018-02-24 16:50 | Emergency (ER) | payer OTHER ==
[~2018-02-24] VITALS: Ht 167.6 cm; Wt 104.3 kg
[~2018-02-24 16:50] MED LIST changes: +MECLIZINE HCL25 MG ORAL
[2018-02-24 17:08] VITALS: BP 130/81
--- NOTE | 2018-02-24 17:24 | Emergency Room Report ---
History of Present Illness General Chief Complaint: Skin Rash/Abscess Source: Patient, Medical Record Present Illness HPI 52-year-old female presents to the emergency department complaining of 7 out of 10 in severity localized pain, tenderness, erythema and some swelling to the left breast 3 days. Patient reports initial onset was from an insect bite that was very itchy. Patient states that now there is an area of erythema that seems to be spreading. Patient reports some warmth she denies strain and she denies swollen tender lymph nodes, fevers, chills. Patient denies discharge from the nipples. Allergies: Coded Allergies: NO KNOWN DRUG ALLERGIES (Unverified Allergy, Unknown, 11/07/14) Patient History Past Medical History: see triage record Past Surgical History: none Pertinent Family History: none Last Menstrual Period: menopause Now: No Reviewed Nursing Documentation: PMH: Agreed; PSxH: Agreed Nursing Documentation-PMH Past Medical History: No History, Except For Hx Hypertension: Yes Hx Asthma: Yes Hx Gastrointestinal Problems: No - Pancreatitis Review of Systems All Other Systems: negative except mentioned in HPI Physical Exam Vital Signs Date Time Temp Pulse Resp B/P (MAP) Pulse Ox O2 Delivery O2 Flow Rate FiO2 02/24/18 16:57 98.2 82 18 130/81 96 Room Air 98.2 Sp02 EP Interpretation: reviewed, normal General Appearance: no apparent distress, alert, GCS 15, non-toxic Head: normocephalic, atraumatic Eyes: bilateral eye normal inspection, bilateral eye PERRL ENT: hearing grossly normal, normal voice Neck: full range of motion Respiratory: lungs clear, normal breath sounds, speaking full sentences Cardiovascular #1: regular rate, rhythm, no edema Musculoskeletal: back normal, gait/station normal, normal range of motion Neurologic: alert, oriented x3, responsive, motor strength/tone normal, sensory intact, speech normal, grossly normal Psychiatric: judgement/insight normal Skin: warm/dry, well hydrated, other - 0.4cm indurated lesion, no palpable fluctuance, with 0.5cm in diameter surrounding erythema. no blisters or vessicle , no palpable fluctuance. Lymphatic: no adenopathy Medical Decision Making PA Attestation Dr. Berger is my supervising Physician whom patient management has been discussed with. Diagnostic Impression: Primary Impression: Cellulitis Qualified Codes: L03.818 - Cellulitis of other sites ER Course 52-year-old female presents to the emergency department complaining of 7 out of 10 in severity localized pain, tenderness, erythema and some swelling to the left breast 3 days. Patient reports initial onset was from an insect bite that was very itchy. Patient states that now there is an area of erythema that seems to be spreading. Patient reports some warmth she denies strain and she denies swollen tender lymph nodes, fevers, chills. Patient denies discharge from the nipples. Ddx considered but are not limited to cellulitis, scabies, insect bites, tic bites, spider bites, contact dermatitis, Drug reaction, allergic reaction, fungal infection, breast abscess just to name a few. Vital signs: are WNL, pt. is afebrile H&PE are most consistent with insect bite with secondary bacterial cellulitis ORDERS: none required at this time, the diagnosis is clinical ED INTERVENTIONS: None required at this time. DISCHARGE: At this time pt. is stable for d/c to home. Will provide printed patient care instructions, and any necessary prescriptions. Care plan and follow up instructions have been discussed with the patient prior to discharge. Last Vital Signs Date Time Temp Pulse Resp B/P (MAP) Pulse Ox O2 Delivery O2 Flow Rate FiO2 02/24/18 17:08 98.2 18 130/81 96 Room Air 98.2 02/24/18 16:57 82 Disposition: HOME, SELF-CARE Condition: Stable Patient Instructions: Abscess Additional Instructions: Take medications as directed. Follow up with a Primary Care Provider in 3-5 days, even if your symptoms have resolved. --Please review list of primary care clinics, if you do not already have a primary care provider Return sooner to ED if new symptoms occur, or current symptoms become worse. - Please note that this Emergency Department Report was dictated using [employer] engine assembler technology software, occasionally this can lead to erroneous entry secondary to interpretation by the dictation equipment. Liz Mejia Feb 24, 2018 17:24
[2018-02-24] MEDS ORDERED: IBUPROFEN600 MG ORAL (17:26)
[2018-02-24] MEDS ORDERED: DICLOXACILLIN500 M1 ORAL (17:26)
[2018-02-24] MEDS ORDERED: MUPIROCIN22 GM TOPIC (17:26)
== END 2018-02-24 17:47 | disposition home or self-care (01) ==
LOC: EMR 17:25
DX: N61.0 Mastitis without abscess (principal); I10 Essential (primary) hypertension; J45.909 Unspecified asthma, uncomplicated
CPT/HCPCS: 99282

== ENCOUNTER 2018-04-10 12:01 | Emergency (ER) | payer OTHER ==
[~2018-04-10] VITALS: Ht 167.6 cm; Wt 95.3 kg
[~2018-04-10 12:01] MED LIST changes: +DICLOXACILLIN500 M1 ORAL; +MUPIROCIN22 GM TOPIC
[2018-04-10] MEDS ORDERED: Mylanta II UD 30ml ORAL ONE (12:30)
[2018-04-10] MEDS ORDERED: Dicyclomine HCl 10mg/5ml oral soln ORAL ONE (12:30)
[2018-04-10] MEDS ORDERED: Lidocaine 2% Visc 15ml soln ORAL ONE (12:30)
[2018-04-10 12:39] LABS: APPEARANCE,URINE SLIGHTLY CLOUDY; BILIRUBIN, URINE NEGATIVE (NEGATIVE); COLOR,URINE YELLOW; GLUCOSE, URINE (UA) NEGATIVE (NEGATIVE); KETONES,URINE NEGATIVE (NEGATIVE); LEUKOCYTE ESTERASE ,URINE NEGATIVE (NEGATIVE); NITRITE,URINE NEGATIVE (NEGATIVE); PH,URINE 5 (4.5-8.0); PROTEIN,URINE 2+ (NEGATIVE); UROBILINOGEN,URINE NORMAL MG/DL (0.0-1.0)
[2018-04-10 12:54] LABS: BASOPHILS % (AUTO) 0.6 % (0.0-2.0); EOSINOPHILS % (AUTO) 3.2 % (0.0-3.0); HEMATOCRIT 41.1 % (37.0-47.0); LYMPHOCYTES % (AUTO) 27.7 % (20.0-45.0); MEAN CORPUSCULAR VOLUME 85 FL (80-99); MONOCYTES % (AUTO) 6.2 % (1.0-10.0); NEUTROPHILS % (AUTO) 62.3 % (45.0-75.0); PLATELET COUNT 281 K/UL (150-450); RED BLOOD COUNT 4.81 M/UL (4.20-5.40); RED CELL DISTRIBUTION WIDTH 12.1 % (11.6-14.8); WHITE BLOOD COUNT 8.5 K/UL (4.8-10.8)
[2018-04-10 12:56] LABS: ANION GAP 6 mmol/L (5-15); BLOOD UREA NITROGEN 17 mg/dL (7-18); CALCIUM 9.5 MG/DL (8.5-10.1); CARBON DIOXIDE 30 MMOL/L (21-32); CHLORIDE 107 MMOL/L (98-107); CREATININE 1.5 MG/DL (0.55-1.30); POTASSIUM 4.2 MMOL/L (3.5-5.1); SODIUM 143 MMOL/L (136-145)
[2018-04-10 13:02] LABS: ALANINE AMINOTRANSFERASE 19 U/L (12-78); ALBUMIN 3.3 G/DL (3.4-5.0); ALBUMIN/GLOBULIN RATIO 0.9 (1.0-2.7); ALKALINE PHOSPHATASE 64 U/L (46-116); ASPARTATE AMINO TRANSFERASE 10 U/L (15-37); BILIRUBIN,TOTAL 0.2 MG/DL (0.2-1.0)
[2018-04-10] MEDS ORDERED: Norco 5mg/325mg tab ORAL ONE (13:30)
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
[2018-04-10 14:05] VITALS: BP 134/63
--- NOTE | 2018-04-10 14:50 | Diagnostic Imaging Report ---
Indication: Chest pain Technique: One view of the chest Comparison: : 01/04/2016 Findings: Lungs and pleural spaces are clear. Heart size is normal. Less optimal inspiration currently. No significant interim change otherwise Impression: No acute process
[2018-04-10] MEDS ORDERED: PEPCID AC10 MG PO (15:39)
[2018-04-10] MEDS ORDERED: LIDOCAINE700 M1 TP (15:39)
[2018-04-10] MEDS ORDERED: TYLENOL EXTRA500 MG ORAL (15:39)
[2018-04-10] MEDS ORDERED: HYDROCHLOROTHIA25 MG ORAL (15:39)
[2018-04-10] MEDS ORDERED: AMLODIPINE BESY10 MG ORAL (15:39)
[2018-04-10] MEDS ORDERED: ROBAXIN500 MG PO (15:39)
[2018-04-10 15:53] VITALS: BP 134/63
--- NOTE | 2018-04-18 13:41 | Cardiology Report ---
APPROVED REPORT EKG Measurement Heart [id number] Normal sinus rhythm Nonspecific T wave abnormality Abnormal ECG
== END 2018-04-10 15:53 | disposition home or self-care (01) ==
LOC: EMR 12:42
DX: K21.9 Gastro-esophageal reflux disease without esophagitis (principal); M54.5 Low back pain; Z76.0 Encounter for issue of repeat prescription; J45.909 Unspecified asthma, uncomplicated; I10 Essential (primary) hypertension
CPT/HCPCS: 36415; 71045; 80053; 80307; 81003; 83690; 84484; 85025; 93005; 96361; 96374; 99284; J2405

== ENCOUNTER 2018-05-24 10:44 | Emergency (ER) | payer OTHER ==
[~2018-05-24] VITALS: Ht 167.6 cm; Wt 95.3 kg
[~2018-05-24 10:44] MED LIST changes: +AMLODIPINE BESY10 MG ORAL; +LIDOCAINE700 M1 TP; +PEPCID AC10 MG PO; +TYLENOL EXTRA500 MG ORAL
[2018-05-24 11:50] VITALS: BP 129/78
[2018-05-24] MEDS ORDERED: Ketorolac 30mg Inj IM ONE (12:30)
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
[2018-05-24 13:00] VITALS: BP 121/82
[2018-05-24] MEDS ORDERED: LORazepam 0.5mg tab ORAL ONE (13:00)
[2018-05-24 13:21] VITALS: BP 121/82
== END 2018-05-24 13:21 | disposition home or self-care (01) ==
LOC: EMR 11:24
DX: T14.8XXA Other injury of unspecified body region, initial encounter (principal); V43.52XA Car driver injured in collision with other type car in traffic accident, initial encounter; Y92.410 Unspecified street and highway as the place of occurrence of the external cause; M54.2 Cervicalgia; M54.9 Dorsalgia, unspecified; J45.909 Unspecified asthma, uncomplicated; I10 Essential (primary) hypertension
CPT/HCPCS: 96372; 99283; J1885

== ENCOUNTER 2018-06-05 11:35 | Emergency (ER) | payer OTHER ==
[~2018-06-05] VITALS: Ht 167.6 cm; Wt 99.8 kg
[2018-06-05] MEDS ORDERED: ROBAXIN-750750 MG PO (12:11)
[2018-06-05 12:14] VITALS: BP 118/79
[2018-06-05 12:15] VITALS: BP 127/82
[2018-06-05] MEDS ORDERED: Ketorolac 60mg Inj IM ONE (12:15)
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
== END 2018-06-05 12:15 | disposition home or self-care (01) ==
LOC: EMR 12:10
DX: T14.8XXA Other injury of unspecified body region, initial encounter (principal); M79.10 Myalgia, unspecified site; M25.512 Pain in left shoulder; M25.552 Pain in left hip; I10 Essential (primary) hypertension; V43.92XA Unspecified car occupant injured in collision with other type car in traffic accident, initial encounter; Y93.9 Activity, unspecified; Y92.9 Unspecified place or not applicable; Y99.9 Unspecified external cause status
CPT/HCPCS: 96372; 99283

== ENCOUNTER 2018-11-28 00:52 | Emergency (ER) | payer MEDICAID, OTHER ==
[~2018-11-28] VITALS: Ht 167.6 cm; Wt 90.7 kg
[~2018-11-28 00:52] MED LIST changes: +ROBAXIN-750750 MG PO
[2018-11-28 01:30] VITALS: BP 164/99
--- NOTE | 2018-11-28 01:30 | NUR ---
ER Nurse Note: Pt came from home c/o bugs crawling under her skin. Pt continues to scratch, no bugs seen on pt. Pt cannot keep still. Pt denies pain, shortness of breath, n/v. Pt shows no signs of distress. Will continue to monitor.
[2018-11-28] MEDS ORDERED: MUPIROCIN22 GM TOPIC (01:41)
[2018-11-28] MEDS ORDERED: DOXYCYCLINE MO100 MG ORAL (01:41)
--- NOTE | 2018-11-28 01:42 | Emergency Room Report ---
History of Present Illness General Chief Complaint: Skin Rash/Abscess Source: Patient Present Illness HPI This is a 52-year-old female with history of cocaine abuse. She presents with chief complaint of lesion on her body. She claimed that there are whitish stringy parasite that she did out. She said she saw him on her bed. She's been scratching at it. His been ongoing for the last 2. No fever chills but no nausea no vomiting. Worse with scratching. Allergies: Coded Allergies: NO KNOWN DRUG ALLERGIES (Unverified Allergy, Unknown, 06/05/18) Patient History Past Medical History: see triage record, old chart reviewed, HTN Past Surgical History: none Pertinent Family History: none Social History: Denies: smoking Last Menstrual Period: n/a Now: No Immunizations: other Reviewed Nursing Documentation: PMH: Agreed; PSxH: Agreed Nursing Documentation-PMH Past Medical History: No History, Except For Hx Hypertension: Yes Hx Asthma: Yes Hx Gastrointestinal Problems: No - Pancreatitis Review of Systems Eye: Denies: eye pain, blurred vision ENT: Denies: ear pain, nose congestion, throat swelling Respiratory: Denies: cough, shortness of breath Cardiovascular: Denies: chest pain, palpitations Gastrointestinal: Denies: abdominal pain, diarrhea, nausea, vomiting Musculoskeletal: Denies: back pain, joint pain Skin: Reports: rash, lesions Neurological: Denies: headache, numbness Endocrine: Denies: increased thirst, increased urine Hematologic/Lymphatic: Denies: easy bruising All Other Systems: negative except mentioned in HPI Physical Exam Vital Signs Date Time Temp Pulse Resp B/P (MAP) Pulse Ox O2 Delivery O2 Flow Rate FiO2 11/28/18 00:55 98.1 81 18 95 Room Air vitals unremarkable except for high blood pressure Sp02 EP Interpretation: reviewed, normal General Appearance: well appearing, no apparent distress, alert Head: normocephalic, atraumatic Eyes: bilateral eye PERRL, bilateral eye EOMI ENT: hearing grossly normal, normal pharynx Neck: full range of motion, supple, no meningismus Respiratory: chest non-tender, lungs clear, normal breath sounds Cardiovascular #1: regular rate, rhythm, no murmur Gastrointestinal: normal bowel sounds, non tender, no mass, no organomegaly, no bruit, non-distended Musculoskeletal: back normal, gait/station normal, normal range of motion Psychiatric: mood/affect normal Skin: warm/dry, other - Patient with ulceration to the right upper lip. She also has laceration to her abdomen and low show me from skin picking. There is some erythema to the right upper arm. No abscess. 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 We'll put her on antibiotics. No evidence of any necrotizing fasciitis or abscess that need to be I and D. We' ll discharge home. Last Vital Signs Date Time Temp Pulse Resp B/P (MAP) Pulse Ox O2 Delivery O2 Flow Rate FiO2 11/28/18 00:55 98.1 81 18 95 Room Air Status: unchanged Disposition: HOME, SELF-CARE Condition: Stable Scripts Mupirocin* (MUPIROCIN*) 22 Gm Oint...g. 1 APPLIC TOPIC THREE TIMES A DAY, #22 GM Prov: Luis Cardenas MD 11/28/18 Doxycycline Monohydrate* (DOXYCYCLINE MONOHYDRATE*) 100 Mg Capsule 100 MG ORAL Q12H, #14 CAP 0 Refills Prov: Luis Cardenas MD 11/28/18 Referrals: [facility],REFERRING (PCP) Additional Instructions: Stop using drugs. Go to rehabilitation. Follow-up with your doctor in 7 days. Return if worse. Lius Cardenas MD November 28, 2018 01:42
[2018-11-28 01:50] VITALS: BP 164/99
--- NOTE | 2018-11-28 01:50 | NUR ---
ER Nurse Note: All orders completed per ERMD orders. Pt seen, treated, medically cleared for discharge by ERMD. Discharge instructions and prescriptions given with repeat verbazliaion by pt. Instructed pt to follow up with primary care provider within one week. Pt a&ox4, VSS, no signs of distress. ID band removed. Pt left with all belongings with steady gait via own transportation.
== END 2018-11-28 01:50 | disposition home or self-care (01) ==
LOC: EMR 01:33
DX: K13.0 Diseases of lips (principal); L03.90 Cellulitis, unspecified; F14.10 Cocaine abuse, uncomplicated; I10 Essential (primary) hypertension; F22 Delusional disorders
CPT/HCPCS: 99282

== ENCOUNTER 2019-01-15 14:58 | Emergency (ER) | payer MEDICAID ==
[~2019-01-15] VITALS: Ht 167.6 cm; Wt 86.2 kg
[~2019-01-15 14:58] MED LIST changes: +DOXYCYCLINE MO100 MG ORAL
[2019-01-15 15:05] VITALS: BP 157/93
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
[2019-01-15] MEDS ORDERED: LORazepam 1mg tab ORAL ONE (15:30)
[2019-01-15 15:39] VITALS: BP_SYST 112; BP_SYST 117; BP_SYST 146; BP_DIAS 74; BP_DIAS 76; BP_DIAS 99
[2019-01-15 15:59] LABS: BASOPHILS % (AUTO) 1.1 % (0.0-2.0); EOSINOPHILS % (AUTO) 4.3 % (0.0-3.0); HEMATOCRIT 41.7 % (37.0-47.0); HEMOGLOBIN 13.3 G/DL (12.0-16.0); LYMPHOCYTES % (AUTO) 30.3 % (20.0-45.0); MEAN CORPUSCULAR VOLUME 87 FL (80-99); MONOCYTES % (AUTO) 5.6 % (1.0-10.0); NEUTROPHILS % (AUTO) 58.9 % (45.0-75.0); PLATELET COUNT 264 K/UL (150-450); RED BLOOD COUNT 4.78 M/UL (4.20-5.40); RED CELL DISTRIBUTION WIDTH 13.1 % (11.6-14.8); WHITE BLOOD COUNT 8.9 K/UL (4.8-10.8)
[2019-01-15 16:12] LABS: ANION GAP 10 mmol/L (5-15); BLOOD UREA NITROGEN 19 mg/dL (7-18); CALCIUM 9.8 MG/DL (8.5-10.1); CARBON DIOXIDE 28 MMOL/L (21-32); CHLORIDE 106 MMOL/L (98-107); CREATININE 1.4 MG/DL (0.55-1.30); SODIUM 143 MMOL/L (136-145)
[2019-01-15 17:15] VITALS: BP 146/99
--- NOTE | 2019-01-16 15:34 | Cardiology Report ---
APPROVED REPORT EKG Measurement Heart [id number] Normal sinus rhythm Prolonged QT Abnormal ECG
== END 2019-01-15 17:15 | disposition home or self-care (01) ==
LOC: EMR 17:05
DX: R55 Syncope and collapse (principal); F14.10 Cocaine abuse, uncomplicated; I10 Essential (primary) hypertension; E86.0 Dehydration
CPT/HCPCS: 36415; 80048; 80307; 85025; 93005; 96360; 99284

== ENCOUNTER 2019-06-11 22:00 | Emergency (ER) | payer MEDICAID ==
[~2019-06-11] VITALS: Ht 167.6 cm; Wt 95.3 kg
--- NOTE | 2019-06-11 22:20 | NUR ---
ED Nurse Note: Walk-in patient with complaints of prouctive cough with yellow phlegm x 3 days. Patient reports history of asthma. Patient is stable, RT called to bedside.
[2019-06-11 22:23] VITALS: BP 132/86
[2019-06-11] MEDS ORDERED: Ipratropium 0.02% Inh Soln 2.5ml UD HHN ONE (22:30)
[2019-06-11] MEDS ORDERED: Albuterol ud Inhalation HHN ONE (22:30)
[2019-06-11] MEDS ORDERED: PREDNISONE20 MG ORAL (23:14)
[2019-06-11] MEDS ORDERED: ALBUTEROL SULF8.5 GM INH (23:14)
[2019-06-11] MEDS ORDERED: PROMETHAZINE-D118 ML ORAL (23:14)
[2019-06-11 23:20] VITALS: BP 132/86
--- NOTE | 2019-06-11 23:20 | NUR ---
ED Nurse Note: Patient cleared for discharge with no s/s of acute distress. Patient tolerated breathing treatment well. ID band removed. Patient verbalized understanding of discharge instructions. Patient called brother for sweet pickled fruit maker and transport to her home. Patient departed with all belongings.
--- NOTE | 2019-06-12 00:41 | Emergency Room Report ---
History of Present Illness General Chief Complaint: Upper Respiratory Illness Source: Patient Present Illness HPI 53-year-old female presents ED for evaluation. Complaining of cough and congestion for the last 4 days. Cough is productive with yellowish phlegm. Denies fevers or chills. Notes shortness of breath. History of asthma. States she does smoke marijuana. Denies sick contacts or recent travel. No other aggravating relieving factors. Denies any other associated symptoms Allergies: Coded Allergies: NO KNOWN DRUG ALLERGIES (Unverified Allergy, Unknown, 06/05/18) Patient History Past Medical History: HTN, asthma Past Surgical History: none Pertinent Family History: none Social History: Reports: smoking, drug use; Denies: alcohol use Last Menstrual Period: na Now: No Immunizations: UTD Reviewed Nursing Documentation: PMH: Agreed; PSxH: Agreed Nursing Documentation-PMH Hx Hypertension: Yes Hx Asthma: Yes Hx Gastrointestinal Problems: No - Pancreatitis Review of Systems All Other Systems: negative except mentioned in HPI Physical Exam Vital Signs Date Time Temp Pulse Resp B/P (MAP) Pulse Ox O2 Delivery O2 Flow Rate FiO2 06/11/19 22:03 98.1 73 18 132/86 (101) 95 Room Air 06/11/19 22:31 21 06/11/19 22:31 8.0 Sp02 EP Interpretation: reviewed, normal General Appearance: no apparent distress, alert, GCS 15, non-toxic Head: normocephalic, atraumatic Eyes: bilateral eye normal inspection, bilateral eye PERRL ENT: hearing grossly normal, normal pharynx, no angioedema, normal voice Neck: full range of motion, supple/symm/no masses Respiratory: chest non-tender, decreased breath sounds, speaking full sentences , wheezing Cardiovascular #1: regular rate, rhythm, no edema Cardiovascular #2: 2+ carotid (R), 2+ carotid (L), 2+ radial (R), 2+ radial (L) , 2+ dorsalis pedis (R), 2+ dorsalis pedis (L) Gastrointestinal: normal bowel sounds, non tender, soft, non-distended, no guarding, no rebound Rectal: deferred Genitourinary: normal inspection, no CVA tenderness Musculoskeletal: back normal, normal range of motion, gait/station normal, non- tender Neurologic: alert, motor strength/tone normal, oriented x3, sensory intact, responsive, speech normal Psychiatric: judgement/insight normal, memory normal, mood/affect normal, no suicidal/homicidal ideation Reflexes: 3+ bicep (R), 3+ bicep (L), 3+ tricep (R), 3+ tricep (L), 3+ knee (R) , 3+ knee (L) Lymphatic: no adenopathy Medical Decision Making Diagnostic Impression: Primary Impression: Bronchitis ER Course Hospital Course 53-year-old female presents to ED complaining of cough, congestion Differential diagnoses include: URI, bronchitis, asthma/COPD, pneumonia Clinical course Patient placed on stretcher. After initial history and physical I ordered prednisone and nebulizer treatment. Upon reassessment patient states cough and symptoms have improved. Findings consistent with bronchitis. I discussed findings with the patient. Will discharge to home with prednisone, albuterol, cough medication. States she has a PMD Diagnosis - bronchitis Stable and discharged home with prescriptions for Rx prednisone, promethazine/DM , albuterol. Instructed to followup with PMD. Return to ED if symptoms recur or worsen Last Vital Signs Date Time Temp Pulse Resp B/P (MAP) Pulse Ox O2 Delivery O2 Flow Rate FiO2 06/11/19 23:20 98.1 73 22 132/86 99 Simple Mask 8.0 21 Status: improved Disposition: HOME, SELF-CARE Condition: Stable Scripts D-Methorphan Hb/Prometh Hcl* (PROMETHAZINE-DM SYRUP*) 118 Ml Syrup 5 ML ORAL Q6H PRN for For Cough, #118 ML 0 Refills Prov: Poncho Cruz MD 06/11/19 Prednisone* (PREDNISONE*) 20 Mg Tablet 40 MG ORAL DAILY, #10 TAB Prov: Poncho Cruz MD 06/11/19 Albuterol Sulfate* (ALBUTEROL SULFATE MDI*) 8.5 Gm Hfa.aer.ad 2 PUFF INH Q6H, #1 EA 0 Refills Prov: Poncho Cruz MD 06/11/19 Patient Instructions: Acute Bronchitis, [id number] Poncho Cruz MD Jun 12, 2019 00:41
== END 2019-06-11 23:20 | disposition home or self-care (01) ==
LOC: EMR 22:19
DX: J40 Bronchitis, not specified as acute or chronic (principal); I10 Essential (primary) hypertension; F12.90 Cannabis use, unspecified, uncomplicated
CPT/HCPCS: 94640; 94664; J7512; Z7502; 99284

== ENCOUNTER 2020-06-30 16:49 | Emergency (ER) | payer MEDICAID, OTHER ==
[~2020-06-30] VITALS: Ht 162.6 cm; Wt 99.8 kg
[~2020-06-30 16:49] MED LIST changes: +PROMETHAZINE-D118 ML ORAL
--- NOTE | 2020-06-30 17:00 | NUR ---
ED Nurse Note: pt walked in to ER from home due to upper thigh pain since she silped but did not fall yesterday. pt aao x4 and ambulatory. no cardiac or pulmonary distress noted at this time.
--- NOTE | 2020-06-30 17:08 | Emergency Room Report ---
History of Present Illness General Chief Complaint: Lower Extremity Injury Source: Patient Present Illness HPI 54-year-old female with history of hypertension currently taking medication here complaining of constipation on and off x2 weeks with last bowel movement 2 days ago without any blood in stool. Also reports that she almost fell few days ago however caught herself from falling feels like there is a muscle that she pulled right leg. Denies any direct injury. Has full range of motion. Neurovascularly intact. Has been taking Motrin with relief. Denies chest pain, shortness of breath, headache and dizziness. Has not taken any blood thinners. Allergies: Coded Allergies: NO KNOWN DRUG ALLERGIES (Unverified Allergy, Unknown, 06/05/18) COVID-19 Screening Contact w/high risk pt: No Experienced COVID-19 symptoms?: No COVID-19 Testing performed [employer]: No Patient History Past Medical History: see triage record Past Surgical History: none Pertinent Family History: none Now: No Immunizations: UTD Reviewed Nursing Documentation: PMH: Agreed; PSxH: Agreed Nursing Documentation-PMH Past Medical History: No History, Except For Hx Hypertension: Yes Hx Asthma: Yes Hx Gastrointestinal Problems: No - Pancreatitis Review of Systems All Other Systems: negative except mentioned in HPI Physical Exam Vital Signs Date Time Temp Pulse Resp B/P (MAP) Pulse Ox O2 Delivery O2 Flow Rate FiO2 06/30/20 16:53 97.9 73 16 154/94 (114) 100 Room Air Sp02 EP Interpretation: reviewed, normal General Appearance: no apparent distress, alert, GCS 15, non-toxic Head: normocephalic, atraumatic Eyes: bilateral eye normal inspection, bilateral eye PERRL ENT: hearing grossly normal, normal pharynx, no angioedema, normal voice Neck: full range of motion, supple/symm/no masses Respiratory: chest non-tender, lungs clear, normal breath sounds, speaking full sentences Cardiovascular #1: regular rate, rhythm, no edema Gastrointestinal: normal bowel sounds, non tender, soft, non-distended, no guarding, no rebound Rectal: deferred Genitourinary: no CVA tenderness Musculoskeletal: back normal, normal range of motion, gait/station normal Neurologic: alert, motor strength/tone normal, oriented x3, sensory intact, responsive, speech normal Psychiatric: judgement/insight normal, memory normal, mood/affect normal, no suicidal/homicidal ideation Skin: no rash Lymphatic: no adenopathy Medical Decision Making PA Attestation ALL Diagnosis and treatment plan reviewed and discussed with my supervising physician Dr. Musa Diagnostic Impression: Primary Impression: Muscle strain Additional Impression: Constipation ER Course 54-year-old female with history of hypertension currently taking medication here complaining of constipation on and off x2 weeks with last bowel movement 2 days ago without any blood in stool. Also reports that she almost fell few days ago however caught herself from falling feels like there is a muscle that she pulled right leg. Denies any direct injury. Has full range of motion. Neurovascularly intact. Has been taking Motrin with relief. Denies chest pain, shortness of breath, headache and dizziness. Has not taken any blood thinners. Ddx considered but are not limited to: Lumbar spine sprain, strain, fracture, contusion, neuropathy Vital signs: are WNL, pt. is afebrile H&PE are most consistent with: muscle strain, constipation ORDERS: Robaxin, ibuprofen, lidocaine patch, lactulose, Colace ER intervention: none DISCHARGE: At this time pt. is stable for d/c to home. Will provide printed patient care instructions, and any necessary prescriptions. Care plan and follow up instructions have been discussed with the patient prior to discharge. At this time and I believe patient needs any sort of imaging herself also advised patient to follow-up with primary doctor for colonoscopy referral patient is not tender to palpation upon examination of abdomen. Patient agrees with this assessment and plan. Last Vital Signs Date Time Temp Pulse Resp B/P (MAP) Pulse Ox O2 Delivery O2 Flow Rate FiO2 06/30/20 16:53 97.9 73 16 154/94 (114) 100 Room Air Disposition: HOME, SELF-CARE Condition: Stable Scripts Docusate Sodium* (COLACE*) 100 Mg Capsule 100 MG ORAL TWICE A DAY, #30 CAP Prov: Jose Michele 06/30/20 Lidocaine Patch* (Lidoderm Patch*) 1 Each Adh..patch 1 PATCH TOPIC DAILY, #30 PATCH Patch(es) may remain in place for up to 12 hours in any 24-hour period. Prov: Jose Michele 06/30/20 Ibuprofen (Ibu) 800 Mg Tablet 800 MG PO TID, #30 TAB Prov: Jose Michele 06/30/20 Methocarbamol* (ROBAXIN-500*) 500 Mg Tablet 500 MG ORAL TID PRN for For Pain, #15 TAB 0 Refills Prov: Jose Michele 06/30/20 Lactulose (LACTULOSE*) 20 Gm/30 Ml Solution 15 ML ORAL TID, #200 ML 0 Refills Prov: Jose Michele 06/30/20 Patient Instructions: Constipation, Adult, [id number], Muscle Strain, [id number] Additional Instructions: Take medication as directed, follow primary care provider, increase fiber intake, positive symptom return to the emergency room Jose Michele Jun 30, 2020 17:08
[2020-06-30 17:10] VITALS: BP 154/94
[2020-06-30] MEDS ORDERED: ROBAXIN-500MG ORAL (17:10)
[2020-06-30] MEDS ORDERED: COLACE100 MG ORAL (17:10)
[2020-06-30] MEDS ORDERED: LACTULOSE20 GM/301 ORAL (17:10)
[2020-06-30] MEDS ORDERED: LIDODERM700 M1 TOPIC (17:10)
[2020-06-30] MEDS ORDERED: IBU800 MG PO (17:10)
--- NOTE | 2020-06-30 17:11 | NUR ---
ED Nurse Note: Pt cleared by health care Provider for discharge. DC instructions/prescription was given and explained to pt and verbalized understanding of teachings. All medical deviecs such as ID band removed. Pt is AAO x4, ambulatory and left with all personal belongings.
== END 2020-06-30 17:30 | disposition home or self-care (01) ==
LOC: EMR 17:22
DX: S86.911A Strain of unspecified muscle(s) and tendon(s) at lower leg level, right leg, initial encounter (principal); W19.XXXA Unspecified fall, initial encounter; Y92.9 Unspecified place or not applicable; K59.09 Other constipation; J45.909 Unspecified asthma, uncomplicated; I10 Essential (primary) hypertension
CPT/HCPCS: 99282

== ENCOUNTER 2020-07-11 10:42 | Emergency (ER) | payer OTHER ==
[~2020-07-11] VITALS: Ht 167.6 cm; Wt 117.9 kg
[~2020-07-11 10:42] MED LIST changes: +COLACE100 MG ORAL; +IBU800 MG PO; +LACTULOSE20 GM/301 ORAL; +ROBAXIN-500MG ORAL
[2020-07-11 10:56] VITALS: BP 157/89
[2020-07-11] MEDS ORDERED: Morphine Sulfate 4mg/ml Inj (IV USE ONLY) IVP ONE (11:00)
--- NOTE | 2020-07-11 11:03 | Emergency Room Report ---
History of Present Illness General Chief Complaint: Abdominal Pain Source: Patient Present Illness HPI Patient is a 54-year-old female past medical history of pancreatitis who presents to the ER complaining of abdominal pain. Patient states that she has been constipated for about a week. Patient also complains of diffuse abdominal pain and bloating. She states it is maximal in the epigastric region. She c omplains of nausea. She denies any fever or chills. She denies any dysuria or hematuria. She denies any chest pain or shortness of breath. 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 She is requesting a COVID-19 test. 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 Patient History Now: No Reviewed Nursing Documentation: PMH: Agreed; PSxH: Agreed Nursing Documentation-PMH Hx Hypertension: Yes Hx Asthma: Yes Review of Systems All Other Systems: negative except mentioned in HPI Physical Exam Vital Signs Date Time Temp Pulse Resp B/P (MAP) Pulse Ox O2 Delivery O2 Flow Rate FiO2 07/11/20 10:44 97.7 78 19 157/89 (111) 96 Room Air Sp02 EP Interpretation: reviewed, normal General Appearance: alert, GCS 15, non-toxic, mild distress Head: normocephalic, atraumatic Eyes: bilateral eye normal inspection, bilateral eye PERRL ENT: hearing grossly normal, normal pharynx, no angioedema, normal voice Neck: full range of motion, supple/symm/no masses Respiratory: chest non-tender, lungs clear, normal breath sounds, speaking full sentences Cardiovascular #1: regular rate, rhythm, no edema Gastrointestinal: other - Diffuse abdominal tenderness to palpation maximal in the epigastric region no guarding or rebound, overweight Rectal: deferred Genitourinary: no CVA tenderness 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 Patient CT consistent with acute diverticulitis without perforation or abscess. Patient given Flagyl and Cipro. After discussing risks and benefits of further diagnostics, treatment plans, as well as indications for and risks of admission, the patient is agreeable to being discharged home. I have explained that their evaluation and treatment in the emergency department today is an important step towards them achieving better health but that their evaluation today is not intended to replace further evaluation and treatment by a physician in their local clinic. I have explained that while the current findings suggest no immediate life threatening emergency they will require further evaluation and treatment by a physician of their choice in their area. They understand that it will be necessary for them to review the final reports of their ED visit with their clinic physician. We have reviewed indications for return to the Emerg ency Department. I have explained that additional time may need to pass and/or additional testing as an outpatient may be necessary before a definitive diagnosis can be made. They tell me they are willing to follow up as instructed within the timeframe I recommend. They appear to understand what we discussed. Additionally they understand that if they are unable to be seen by an outpatient physician they are welcome, and in fact should, return to the Emergency Department for a repeat evaluation. The patient is stable at time of discharge. Laboratory Tests Test 07/11/20 11:18 White Blood Count 8.9 K/UL (4.8-10.8) Red Blood Count 4.53 M/UL (4.20-5.40) Hemoglobin 12.9 G/DL (12.0-16.0) Hematocrit 37.8 % (37.0-47.0) Mean Corpuscular Volume 83 FL (80-99) Mean Corpuscular Hemoglobin 28.4 PG (27.0-31.0) Mean Corpuscular Hemoglobin Concent 34.0 G/DL (32.0-36.0) Red Cell Distribution Width 13.7 % (11.6-14.8) Platelet Count 267 K/UL (150-450) Mean Platelet Volume 9.1 FL (6.5-10.1) Neutrophils (%) (Auto) 57.6 % (45.0-75.0) Lymphocytes (%) (Auto) 33.8 % (20.0-45.0) Monocytes (%) (Auto) 4.1 % (1.0-10.0) Eosinophils (%) (Auto) 3.3 % (0.0-3.0) H Basophils (%) (Auto) 1.2 % (0.0-2.0) Prothrombin Time 10.5 SEC (9.30-11.50) Prothrombin Time INR 0.9 (0.9-1.1) Activated Partial Thromboplast Time 25 SEC (23-33) Urine Color Pale yellow Urine Appearance Clear Urine pH 5 (4.5-8.0) Urine Specific [place] 1.020 (1.005-1.035) Urine Protein Negative (NEGATIVE) Urine Glucose (UA) Negative (NEGATIVE) Urine Ketones Negative (NEGATIVE) Urine Blood Negative (NEGATIVE) Urine Nitrite Negative (NEGATIVE) Urine Bilirubin Negative (NEGATIVE) Urine Urobilinogen Normal MG/DL (0.0-1.0) Urine Leukocyte Esterase Negative (NEGATIVE) Sodium Level 137 MMOL/L (136-145) Potassium Level 3.4 MMOL/L (3.5-5.1) L Chloride Level 104 MMOL/L (98-107) Carbon Dioxide Level 28 MMOL/L (21-32) Anion Gap 5 mmol/L (5-15) Blood Urea Nitrogen 21 mg/dL (7-18) H Creatinine 0.9 MG/DL (0.55-1.30) Estimated Glomerular Filtration Rate > 60 mL/min (>60) Glucose Level 90 MG/DL (74-106) Calcium Level 9.5 MG/DL (8.5-10.1) Magnesium Level 1.9 MG/DL (1.8-2.4) Total Bilirubin 0.3 MG/DL (0.2-1.0) Aspartate Amino Transferase (AST) 12 U/L (15-37) L Alanine Aminotransferase (ALT) 21 U/L (12-78) Alkaline Phosphatase 82 U/L (46-116) Total Protein 7.6 G/DL (6.4-8.2) Albumin 3.6 G/DL (3.4-5.0) Globulin 4.0 g/dL Albumin/Globulin Ratio 0.9 (1.0-2.7) L Lipase 339 U/L (73-393) Urine Opiates Screen Negative (NEGATIVE) Urine Barbiturates Screen Negative (NEGATIVE) Phencyclidine (PCP) Screen Negative (NEGATIVE) Urine Amphetamines Screen Negative (NEGATIVE) Urine Benzodiazepines Screen Negative (NEGATIVE) Urine Cocaine Screen Negative (NEGATIVE) Urine Marijuana (THC) Screen Positive (NEGATIVE) H Microbiology Date/Time Source Procedure Growth Status 07/11/20 11:18 Nasopharynx SARS-CoV-2 RdRp Gene Assay - Final Complete EKG Diagnostic Results Troponin ordered: No - Ordered for epigastric pain EKG Time: 11:39 EP Interpretation: Emilee Paredes MD Rate: normal - 60 bpm Rhythm: NSR ST Segments: no acute changes ASA given to the pt in ED: No Last Vital Signs Date Time Temp Pulse Resp B/P (MAP) Pulse Ox O2 Delivery O2 Flow Rate FiO2 07/11/20 10:56 97.7 19 157/89 96 Room Air 07/11/20 10:56 78 Disposition: HOME, SELF-CARE Condition: Stable Scripts Ondansetron* (ZOFRAN*) 4 Mg Tablet 4 MG ORAL Q6H PRN for Nausea & Vomiting, #10 TAB Prov: Emilee Paredes M.D. 07/11/20 Tramadol Hcl* (ULTRAM*) 50 Mg Tablet 50 MG ORAL Q6H PRN for For Pain, #12 TAB 0 Refills Prov: Emilee Paredes M.D. 07/11/20 Metronidazole* (FLAGYL*) 500 Mg Tablet 500 MG ORAL THREE TIMES A DAY, #30 TAB Prov: Emilee Paredes M.D. 07/11/20 Ciprofloxacin Hcl* (CIPROFLOXACIN HCL*) 500 Mg Tablet 500 MG ORAL Q12H, #20 TAB 0 Refills Prov: Emilee Paredes M.D. 07/11/20 Referrals: Darren Chavira M.D. (PCP) Additional Instructions: The patient was provided with discharge instructions, notified to follow-up with a primary care doctor and or specialist in the next 24-48 hours, and to return to the ED if they have worsening of their symptoms. Please note that this report is being documented using [employer] technology. This can lead to erroneous entry secondary to incorrect interpretation by the dictating instrument. Emilee Paredes M.D. Jul 11, 2020 11:03
[2020-07-11 11:27] LABS: APPEARANCE,URINE CLEAR; BILIRUBIN, URINE NEGATIVE (NEGATIVE); COLOR,URINE PALE YELLOW; GLUCOSE, URINE (UA) NEGATIVE (NEGATIVE); KETONES,URINE NEGATIVE (NEGATIVE); LEUKOCYTE ESTERASE ,URINE NEGATIVE (NEGATIVE); NITRITE,URINE NEGATIVE (NEGATIVE); PH,URINE 5 (4.5-8.0); PROTEIN,URINE NEGATIVE (NEGATIVE); UROBILINOGEN,URINE NORMAL MG/DL (0.0-1.0)
[2020-07-11 11:36] LABS: BASOPHILS % (AUTO) 1.2 % (0.0-2.0); EOSINOPHILS % (AUTO) 3.3 % (0.0-3.0); HEMATOCRIT 37.8 % (37.0-47.0); HEMOGLOBIN 12.9 G/DL (12.0-16.0); LYMPHOCYTES % (AUTO) 33.8 % (20.0-45.0); MEAN CORPUSCULAR VOLUME 83 FL (80-99); MONOCYTES % (AUTO) 4.1 % (1.0-10.0); NEUTROPHILS % (AUTO) 57.6 % (45.0-75.0); PLATELET COUNT 267 K/UL (150-450); RED BLOOD COUNT 4.53 M/UL (4.20-5.40); RED CELL DISTRIBUTION WIDTH 13.7 % (11.6-14.8); WHITE BLOOD COUNT 8.9 K/UL (4.8-10.8)
[2020-07-11 11:40] LABS: ANION GAP 5 mmol/L (5-15); BLOOD UREA NITROGEN 21 mg/dL (7-18); CALCIUM 9.5 MG/DL (8.5-10.1); CARBON DIOXIDE 28 MMOL/L (21-32); CHLORIDE 104 MMOL/L (98-107); CREATININE 0.9 MG/DL (0.55-1.30); INR 0.9 (0.9-1.1); POTASSIUM 3.4 MMOL/L (3.5-5.1); SODIUM 137 MMOL/L (136-145)
[2020-07-11 11:45] LABS: ALANINE AMINOTRANSFERASE 21 U/L (12-78); ALBUMIN 3.6 G/DL (3.4-5.0); ALBUMIN/GLOBULIN RATIO 0.9 (1.0-2.7); ALKALINE PHOSPHATASE 82 U/L (46-116); ASPARTATE AMINO TRANSFERASE 12 U/L (15-37); BILIRUBIN,TOTAL 0.3 MG/DL (0.2-1.0)
--- NOTE | 2020-07-11 12:19 | Diagnostic Imaging Report ---
EXAM: CT Abdomen and Pelvis Without Intravenous Contrast CLINICAL HISTORY: ABD PAIN TECHNIQUE: Axial computed tomography images of the abdomen and pelvis without intravenous contrast. CTDI is 21.7 mGy and DLP is 1234.7 mGy-cm. One or more of the following dose reduction techniques were used: automated exposure control, adjustment of the mA and/or kV according to patient size, use of iterative reconstruction technique. COMPARISON: CT abdomen and pelvis 11/13/16 FINDINGS: Lung bases: Unremarkable. No mass. No consolidation. ABDOMEN: Liver: Unremarkable. Gallbladder and bile ducts: Gallstones. No ductal dilation. Pancreas: Unremarkable. No ductal dilation. Spleen: Unremarkable. No splenomegaly. Adrenals: Unremarkable. No mass. Kidneys and ureters: Unremarkable. No obstructing stones. No hydronephrosis. Stomach and bowel: Colonic diverticulosis. Mild stranding in the sigmoid colon may be mild acute diverticulitis. Trace free fluid. No free air or abscess. No obstruction. PELVIS: Appendix: Normal appendix. Bladder: Unremarkable. No stones. Reproductive: 4.7 cm cystic right ovary with questionable septations or tubular component, similar to prior study. ABDOMEN and PELVIS: Intraperitoneal space: See above. Bones/joints: Degenerative changes of the lumbar spine, L5-S1. Bilateral L5 pars defects. No spondylolisthesis. No acute fracture. No dislocation. Soft tissues: Unremarkable. Vasculature: Mild atherosclerotic vascular disease. No abdominal aortic aneurysm. Lymph nodes: Slightly prominent bilateral inguinal lymph nodes. IMPRESSION: 1. Colonic diverticulosis. Mild stranding in the sigmoid colon may be mild acute diverticulitis. Trace free fluid. No free air or abscess. 2. Gallstones. 3. 4.7 cm cystic right ovary with questionable septations or tubular component, similar to prior study.
[2020-07-11] MEDS ORDERED: CIPROFLOXACIN500 M2 ORAL (12:25)
[2020-07-11] MEDS ORDERED: TRAMADOL HCL50 MG ORAL (12:25)
[2020-07-11] MEDS ORDERED: METRONIDAZOLE500 MG ORAL (12:25)
[2020-07-11] MEDS ORDERED: ZOFRAN4 M3 ORAL (12:26)
[2020-07-11] MEDS ORDERED: metroNIDAZOLE 500mg tab ORAL ONE (12:30)
[2020-07-11] MEDS ORDERED: Ciprofloxacin 500mg tab ORAL ONE (12:30)
[2020-07-11 12:34] VITALS: BP 157/89
== END 2020-07-11 12:35 | disposition home or self-care (01) ==
LOC: EMR 11:00
DX: K57.92 Diverticulitis of intestine, part unspecified, without perforation or abscess without bleeding (principal); K80.20 Calculus of gallbladder without cholecystitis without obstruction; I10 Essential (primary) hypertension; J45.909 Unspecified asthma, uncomplicated; Z79.899 Other long term (current) drug therapy
CPT/HCPCS: 36415; 74176; 80053; 80307; 81003; 83690; 83735; 85025; 85610; 85730; 93005; 96361; 96374; 96375; J2270; J2405; U0002; Z7502; 99284

== ENCOUNTER 2020-07-20 17:10 | Emergency (ER) | payer OTHER ==
[~2020-07-20] VITALS: Ht 167.6 cm; Wt 99.8 kg
[~2020-07-20 17:10] MED LIST changes: +CIPROFLOXACIN500 M2 ORAL; +METRONIDAZOLE500 MG ORAL; +TRAMADOL HCL50 MG ORAL
[2020-07-20 17:30] VITALS: BP 136/95
--- NOTE | 2020-07-20 17:30 | NUR ---
Nurse Note: Pt walked in c/o 910 severe burning and sharp pain and RT flank pain since one week. Pt stated she was treated and prescribed medication; complient with treatment plan. Pt denies n/v/d, denies burning while urinating. Pt stated hx of gallstones.
[2020-07-20] MEDS ORDERED: Ketorolac 30mg Inj IM ONE (17:45)
--- NOTE | 2020-07-20 17:49 | Emergency Room Report ---
History of Present Illness General Chief Complaint: Back Pain-No Injury Source: Patient Present Illness HPI 54-year-old female with history of constipation, diverticulosis, and ovarian cyst here complaining of the same pain the patient presenting with past several visits. Complains of right flank and upper back pain without any radiation. Denies any urinary symptoms. Reports that she continues to be constipated. Patient reports that she is bananas and grapes every morning to deal with her constipation. Patient does not appear to have a good knowledge of high fiber intake. Denies nausea vomiting diarrhea. Denies chest pain shortness of breath. Patient was prescribed Flagyl and ciprofloxacin last time she was here for mild diverticulitis. Also patient has gallstones however denies any right upper quadrant abdominal pain at this time. Has not yet been successful in reaching out to primary doctor. She also reports that she is a lot of red meat and seafood. She also consumes a lot of dairy. 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 COVID-19 Screening: Negative COVID-19 COVID-19 Testing Source: clinic Patient History Past Medical History: see triage record Past Surgical History: none Pertinent Family History: none Now: No Immunizations: UTD Reviewed Nursing Documentation: PMH: Agreed; PSxH: Agreed Nursing Documentation-PMH Hx Hypertension: Yes Hx Asthma: Yes Review of Systems All Other Systems: negative except mentioned in HPI Physical Exam Vital Signs Date Time Temp Pulse Resp B/P (MAP) Pulse Ox O2 Delivery O2 Flow Rate FiO2 07/20/20 17:12 97.7 80 18 136/95 (109) 97 Room Air Sp02 EP Interpretation: reviewed, normal General Appearance: no apparent distress, alert, GCS 15, non-toxic Head: normocephalic, atraumatic Eyes: bilateral eye normal inspection, bilateral eye PERRL ENT: hearing grossly normal, no angioedema, normal voice Neck: full range of motion, supple/symm/no masses Respiratory: no respiratory distress, no retraction, no accessory muscle use, speaking full sentences Cardiovascular #1: regular rate, rhythm, no edema Gastrointestinal: non tender, soft, no mass, no organomegaly, no peritonitis, no bruit, non-distended, no guarding, no hernia, no pulsatile mass, other - Negative Major sign Genitourinary: no CVA tenderness Musculoskeletal: back normal Neurologic: alert, motor strength/tone normal, oriented x3, sensory intact, responsive, speech normal Psychiatric: judgement/insight normal, memory normal, mood/affect normal, no suicidal/homicidal ideation Skin: no rash Lymphatic: no adenopathy Medical Decision Making PA Attestation All diagnoses and treatment plans were reviewed and discussed with my supervising physician Dr. Garsia Diagnostic Impression: Primary Impression: Muscle strain Additional Impressions: Ovarian cyst Cholelithiases Diverticulosis ER Course 54-year-old female with history of constipation, diverticulosis, and ovarian cyst here complaining of the same pain the patient presenting with past several visits. Complains of right flank and upper back pain without any radiation. Denies any urinary symptoms. Reports that she continues to be constipated. Patient reports that she is bananas and grapes every morning to deal with her constipation. Patient does not appear to have a good knowledge of high fiber intake. Denies nausea vomiting diarrhea. Denies chest pain shortness of breat h. Patient was prescribed Flagyl and ciprofloxacin last time she was here for mild diverticulitis. Also patient has gallstones however denies any right upper quadrant abdominal pain at this time. Has not yet been successful in reaching out to primary doctor. She also reports that she is a lot of red meat and seafood. She also consumes a lot of dairy. 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 Patient continues to take stool softeners, denies any bloody stools. Ddx considered but are not limited to: Cholelithiasis, cholecystitis, diverticulitis, diverticulosis, muscle strain, ovarian cyst, renal cyst Vital signs: are WNL, pt. is afebrile H&PE are most consistent with: Constipation, cholelithiasis, diverticulosis, muscle strain ORDERS: Patient had blood work done by. Blood work at this time. Flexeril, prednisone, ED INTERVENTIONS: Toradol, dexamethasone DISCHARGE: At this time pt. is stable for d/c to home. Will provide printed patient care instructions, and any necessary prescriptions. Care plan and follow up instructions have been discussed with the patient prior to discharge. Patient to follow primary doctor for referral to colonoscopy done increase fiber intake, with any bananas, red meat, seafood daily. Crease fiber intake and green leafy vegetables. Also keep the affected area warm, wear tight undergarment when standing at work and cold air. If worsening symptoms return to the emergency room Last Vital Signs Date Time Temp Pulse Resp B/P (MAP) Pulse Ox O2 Delivery O2 Flow Rate FiO2 07/20/20 17:30 97.7 78 18 136/95 97 Room Air Disposition: HOME, SELF-CARE Condition: Stable Referrals: Darren Chaivra M.D. (PCP) Patient Instructions: High-Fiber Diet, Muscle Strain, [id number] Additional Instructions: Patient to follow primary doctor for referral to colonoscopy done increase fiber intake, with any bananas, red meat, seafood daily. Crease fiber intake and green leafy vegetables. Also keep the affected area warm, wear tight undergarment when standing at work and cold air. If worsening symptoms return to the emergency room Jose Michele Jul 20, 2020 17:49
[2020-07-20] MEDS ORDERED: PREDNISONE20 MG ORAL (17:50)
[2020-07-20] MEDS ORDERED: IBUPROFEN600 M1 ORAL (17:50)
[2020-07-20] MEDS ORDERED: CYCLOBENZAPRINE10 MG ORAL (17:50)
[2020-07-20 18:00] VITALS: BP 136/95
--- NOTE | 2020-07-20 18:00 | NUR ---
ED Nurse Note: Pt cleared by health care Provider for discharge. DC instructions/prescription was given and explained to pt and verbalized understanding of teachings. Instructed pt to follow up with PCP within 2-4 days. All medical deviecs such as ID band removed. Pt is AAO x4, ambulatory and left with all personal belongings.
== END 2020-07-20 18:00 | disposition home or self-care (01) ==
LOC: EMR 17:33
DX: S29.012A Strain of muscle and tendon of back wall of thorax, initial encounter (principal); X58.XXXA Exposure to other specified factors, initial encounter; Y92.9 Unspecified place or not applicable; I10 Essential (primary) hypertension; J45.909 Unspecified asthma, uncomplicated; K80.20 Calculus of gallbladder without cholecystitis without obstruction; K57.30 Diverticulosis of large intestine without perforation or abscess without bleeding; N83.209 Unspecified ovarian cyst, unspecified side
CPT/HCPCS: 96372; J1100; J1885; Z7502; 99283